=== PATIENT | male | born 1950 | race Caucasian/White ===

== ENCOUNTER 2016-04-04 03:45 | Inpatient (IN) | payer MEDICARE ==
[2016-04-04] MEDS ORDERED: ASPIRIN 81 MG TABLET, CHEWABLE PO ONE (04:14)
[2016-04-04 04:56] LABS: ABSOLUTE LYMPHOCYTES (AUTO) 1.3 10^3/uL (0.5-4.7); ABSOLUTE MONOCYTES (AUTO) 2.5 10^3/uL (0.1-1.4); ABSOLUTE NEUT (AUTO) 12.3 10^3/uL (1.7-8.2); BASOPHILS % (AUTO) 0.3 % (0-2); HEMOGLOBIN 11.4 g/dL (13.5-17.0); HGB HCT DIFFERENCE 1.2; LYMPHOCYTES % (AUTO) 8.2 % (13-45); MEAN CORPUSCULAR HEMOGLOBIN 32.2 pg (27.0-33.4); MEAN CORPUSCULAR HGB CONC 34.4 g/dL (32.0-36.0); MEAN CORPUSCULAR VOLUME 94 fl (80-97); MONOCYTES % (AUTO) 15.3 % (3-13); RED BLOOD COUNT 3.53 10^6/uL (4.35-5.55); RED CELL DISTRIBUTION WIDTH 13.2 % (11.5-14.0); SEGMENTED NEUTROPHILS % (AUTO) 76.2 % (42-78); WHITE BLOOD COUNT 16.1 10^3/uL (4.0-10.5)
[2016-04-04] MEDS ORDERED: NORMAL SALINE 1000 ML 1,000 ML IV ONE (05:08)
[2016-04-04 05:15] LABS: ALANINE AMINOTRANSFERASE 30 U/L (21-72); ALBUMIN 3.6 g/dL (3.5-5.0); ALKALINE PHOSPHATASE 79 U/L (38-126); ANION GAP 17 (5-19); ASPARTATE AMINO TRANSFERASE 34 U/L (17-59); BILIRUBIN,DIRECT 0.5 mg/dL (0.0-0.3); BILIRUBIN,TOTAL 2.8 mg/dL (0.2-1.3); BLOOD UREA NITROGEN 45 mg/dL (7-20); CALCIUM 9.6 mg/dL (8.4-10.2); CARBON DIOXIDE 24 mmol/L (22-30); CHLORIDE 95 mmol/L (98-107); CREATINE KINASE 56 U/L (55-170); GLUCOSE 99 mg/dL (75-110); POTASSIUM 4.9 mmol/L (3.6-5.0); SODIUM 135.7 mmol/L (137-145); TOTAL PROTEIN 6.4 g/dL (6.3-8.2)
--- NOTE | 2016-04-04 05:17 | ER Document Report ---
ED Blood Pressure Problem <ANA ROSA DIAZ - Last Filed: 04/04/16 05:47> <RADHAJACQUE - Last Filed: 04/04/16 18:33> - General Mode of Arrival: Medic Information source: Patient, Relative <SUNNI ANAYA - Last Filed: 04/05/16 21:50> - General Chief Complaint: Low Blood Pressure Stated Complaint: BLOOD PRESSURE PROBLEMS Notes: Patient is a 66-year-old male with a history of COPD, heart attack in who presents to the ER today with left-sided chest pain that began approximately 4 days ago, worse with taking deep breaths. Patient states the chest pain worsened today. Patient states that he has felt generally weak over the past 4 days and has really just stayed in the bed, getting up occasionally to watch TV. He denies any weakness worse on one side or the other, numbness or tingling, headache, nausea, vomiting. He denies any dysuria, abdominal pain. He does admit to some diarrhea that is abnormal for him over the past 4 days as well as some fevers and chills that have been intermittent, but he has not taken his temperature. (JACLYNSUNNI) - Related Data Allergies/Adverse Reactions: Penicillins Allergy (Severe, Verified 04/04/16 04:47) Anaphylaxis Home Medications: Current Home Medications Albuterol Sulfate [Albuterol Sulfate 2.5mg/3 mL] 2.5 mg IH PRN PRN 04/04/16 [ History] Albuterol Sulfate [Proair Hfa Inhalation Aerosol 8.5 gm Mdi] 1 puff IH Q4HP PRN 04/04/16 [History] Carvedilol [Coreg] 12.5 mg PO DAILY 04/04/16 [History] Celecoxib [Celebrex 200 mg Capsule] 200 mg PO DAILY 04/04/16 [History] Citalopram Hydrobromide [Celexa 40 mg Tablet] 40 mg PO DAILY 04/04/16 [History] Esomeprazole Magnesium [Nexium] 40 mg PO DAILY 04/04/16 [History] Furosemide [Lasix 40 mg Tablet] 40 mg PO Q2DAYS PRN 04/04/16 [History] Gabapentin 600 mg PO BID 04/04/16 [History] Hydromorphone HCl [Dilaudid] 4 mg PO Q4HP PRN 04/04/16 [History] Losartan Potassium 100 mg PO DAILY 04/04/16 [History] Nitroglycerin [Nitrostat 0.4 mg (1/150 Gr) Tabs 25/Bottle] 1 tab SL Q5MP PRN 01/09 [History] Prednisone 10 mg PO DAILY 04/04/16 [History] Tamsulosin HCl [Flomax 0.4 mg Cap.sr] 0.4 mg PO DAILY 04/04/16 [History] Tiotropium [place] [Spiriva Handihaler 18 mcg/dose (30 Dose)] 1 cap IH DAILY 01/09 [History] Past Medical History - General Information source: Patient - Social History Smoking Status: Former Smoker Family History: Reviewed & Not Pertinent <SUNNI ANAYA - Last Filed: 04/05/16 21:50> Review of Systems - Review of Systems Constitutional: See HPI EENT: No symptoms reported Cardiovascular: See HPI Respiratory: See HPI Gastrointestinal: See HPI Genitourinary: No symptoms reported Male Genitourinary: No symptoms reported Musculoskeletal: No symptoms reported Skin: No symptoms reported Hematologic/Lymphatic: No symptoms reported Neurological/Psychological: No symptoms reported <SUNNI ANAYA - Last Filed: 04/05/16 21:50> Physical Exam <ANA ROSA DIAZ - Last Filed: 04/04/16 05:47> <JACQUE GARCIA - Last Filed: 04/04/16 18:33> <SUNNI ANAYA - Last Filed: 04/05/16 21:50> - Vital signs Vitals: Temp 98.0 F 04/04/16 03:50 (ANA ROSA DIAZ) (JACQUE GARCIA) - Notes Notes: PHYSICAL EXAMINATION: GENERAL: pale, chronically ill appearing, in no acute distress. HEAD: Atraumatic, normocephalic. EYES: Pupils equal round and reactive to light, extraocular movements intact, sclera anicteric, conjunctiva are normal. ENT: ear canals without erythema or foreign body, TMs pearly soto with good bony landmarks, nares patent, oropharynx clear without exudates. Moist mucous membranes. NECK: Normal range of motion, supple without lymphadenopathy LUNGS: CTAB and equal. No wheezes rales or rhonchi. HEART/CHEST: nontender to palpation, Regular rate and rhythm without murmurs ABDOMEN: Soft, RLQ and LLQ tenderness. No guarding, no rebound BACK: no vertebral tenderness, normal ROM GI/: no CVA tenderness EXTREMITIES: Normal range of motion, no pitting edema. No cyanosis. NEUROLOGICAL: alert and oriented to person place and time, answering questions appropriately, Cranial nerves grossly intact. Normal sensory/motor exams. PSYCH: Normal mood, normal affect. SKIN: Warm, Dry, normal turgor, no rashes or lesions noted (SUNNI ANAYA) Course - Laboratory Result Diagrams: 04/04/16 04:40 04/04/16 04:40 <ANA ROSA DIAZ - Last Filed: 04/04/16 05:47> - Laboratory Result Diagrams: 04/04/16 04:40 04/04/16 04:40 <JACQUE GARCIA - Last Filed: 04/04/16 18:33> - Laboratory Result Diagrams: 04/05/16 14:53 04/05/16 14:53 <SUNNI ANAYA - Last Filed: 04/05/16 21:50> - Re-evaluation Re-evalutation: 04/04/16 05:47 I did speak with Rita Santacruz, physician's acute care nursing assistant, but the patient. Unfortunately we do not have any old records for the patient being that he is from [place]. Per the history patient has been feeling unwell and somewhat confused at home. Patient has had some intermittent mild chest pain. He does have a cardiac history. He does not have stents. 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 Due to him being initially high. DanielaI did do a bedside ultrasound to make sure is no large pleural effusion. A total chills negative. Clinically the patient looks well. He's had to questions appropriate. He's been interacting appropriate. His blood pressure systolically in the low 100s. His chest x-ray shows no evidence fluid overload and therefore we'll give him more IV fluids. His creatinine is elevated suggesting that maybe he has become very dehydrated. We still waiting for the labs. We'll repeat his troponin to make sure that it is not increasing. Patient has a leukocytosis however he is chronically on steroids due to history of COPD. He's had no fevers. He is not septic or toxic appearing at this time. He is chronically on steroids for COPD. We will give him a stress dose of soluCortef and send a random cortisol level.. (ANA ROSA DIAZ) 04/04/16 07:21 Pt stable, vital signs are all within normal limits. Pt actually looks very well right now. OLY Uribe has taken over the case at this time. ( SUNNI ANAYA) - Vital Signs Vital signs: Temp Pulse Resp BP Pulse Ox 97.5 F 70 20 88/60 L 94 04/05/16 19:50 04/05/16 19:50 04/05/16 19:50 04/05/16 19:50 04/05/16 19:50 (ANA ROSA DIAZ) (JACQUE GARCIA) - Laboratory Laboratory results interpreted by me: 04/04/16 04/04/16 04/04/16 04:40 04:40 06:00 WBC 16.1 H RBC 3.53 L Hgb 11.4 L Hct 33.0 L Lymphocytes % 8.2 L Monocytes % 15.3 H Absolute Neutrophils 12.3 H Absolute Monocytes 2.5 H Sodium 135.7 L Chloride 95 L BUN 45 H Creatinine 3.70 H Est GFR ( Amer) 20 L Est GFR (Non-Af Amer) 17 L Total Bilirubin 2.8 H Direct Bilirubin 0.5 H Urine Protein 100 H Urine Glucose (UA) 50 H Urine Ketones TRACE H Urine Urobilinogen 4.0 H (ANA ROSA DIAZ) (JACQUE GARCIA) (SUNNI ANAYA) Discharge <ANA ROSA DIAZ - Last Filed: 04/04/16 05:47> - Discharge Admitting Provider: Hospitalist Unit Admitted: Telemetry <JACQUE GARCIA - Last Filed: 04/04/16 18:33> <SUNNI ANAYA - Last Filed: 04/05/16 21:50> - Discharge Clinical Impression: Weakness, Acute kidney injury Condition: Stable Disposition: ADMITTED INPATIENT
[2016-04-04 05:27] LABS: CREATINE KINASE MB 1.04 ng/mL (<4.55)
[2016-04-04 05:29] LABS: TROPONIN I 0.067 ng/mL
[2016-04-04] MEDS ORDERED: HYDROCORTISONE SOD SUCCINATE INJ/PF 100 MG/2 ML SDV IV ONE (05:52)
[2016-04-04 06:40] LABS: APPEARANCE,URINE CLOUDY; BILIRUBIN,URINE NEGATIVE (NEGATIVE); GLUCOSE, URINE 50 mg/dL (NEGATIVE); KETONES,URINE TRACE mg/dL (NEGATIVE); LEUKOCYTE ESTERASE,URINE NEGATIVE (NEGATIVE); NITRITE,URINE NEGATIVE (NEGATIVE); PROTEIN,URINE 100 mg/dL (NEGATIVE); URINE SPECIFIC GRAVITY 1.014
[2016-04-04] MEDS ORDERED: CEFTRIAXONE 1 GM/D5W RTU 50 ML IV ONE (06:44)
--- NOTE | 2016-04-04 07:20 | EKG REPORT ---
SEVERITY:- ABNORMAL ECG - SINUS RHYTHM INCOMPLETE RIGHT BUNDLE BRANCH BLOCK : Confirmed by: Arelis Contreras MD 04-Apr-2016 07:19:51
[2016-04-04 07:36] LABS: VENOUS BLOOD HCO3 24.5 mmol/L (20-32); VENOUS BLOOD PCO2 44.1 mmHg (35-63); VENOUS BLOOD PH 7.36 (7.30-7.42)
--- NOTE | 2016-04-04 08:16 | Physician Advisory Note ---
Physician Advisor ProgressNote .: Pursuant to the plan for [facility], I have reviewed the medical record for this patient. Physician Advisor Statement: Possible documentation opportunities if attending agrees: 1. "Chest pain, likely/possibly due to " 2. "suspected acute kidney injury, likely due to " [ATN, Acute cortical necrosis, medullary necrosis, ...] 3. "Chronic Kidney Dz stage ___" 4. "mild hyponatremia, likely due to intravascular volume depletion" As always, if concerned about any unstable VS or abnormal labs, please comment on them & note what doing about them, & please document each day the potential clinical problems you are concerned could occur if pt not kept in hospital for tx at this time. Status: 66yo w/COPD on chronic steroids, CAD w/past KS & CABG, comes in w/CP after 4 days of feeling unwell/weak, with diarrhea & subjective F/C. Reportedly somewhat confused at home. Presents with hypotension, hyponatremia, Cr 3.70, ketonuria/proteinuria/glucosuria, leukocytosis (unknown how much leukocytosis is usual for him). Pt with CP/TERRELL/hyponatremia is typically most appropriate to bring in as Outpt Observation, initially, with close monitoring for development of reasons to need transition to Inpatient status, documenting explicitly, if so, why tx in inpatient hospital setting medically reasonable & necessary to protect pt's health, safety, & medical condition. (An aside: "Admit" now means "Inpt" - we "bring in" for Outpt Obs, then decide to "Admit to Inpt" or to d/c.) Thanks for your help with documentation accuracy/specificity improvement! Destiny Marshall MD [facility] Physician Advisor, Fellow of Hospital Medicine Addendum 04/05: H&P nicely documents co-morbidities & baseline Cr which makes it much clearer how severe the TERRELL was on arrival, the NPO status x days, with continued use of nephrotoxic meds, & the concern for osteomyelitis/tx w/IV Aztreonam, & supports Inpt status. Approp Inpt. CK
[2016-04-04] MEDS: NORMAL SALINE 1000 ML 1,000 ML IV PRN (09:44)
[2016-04-04] MEDS ORDERED: HYDROMORPHONE HCL INJ/PF 2 MG/ML AMPULE IV ONE (09:45)
[2016-04-04] MEDS ORDERED: NITROGLYCERIN 0.4 MG/TAB 25 TAB/BOTTLE SL PRN ×2 (14:56→15:27)
[2016-04-04] MEDS: HEPARIN SOD (PORCINE) 5,000 UNIT/ML 1 ML SYRINGE SUBCUT SCH ×2 (15:00→21:31)
[2016-04-04] MEDS ORDERED: TAMSULOSIN HCL 0.4 MG CAP.SR.24H PO SCH (15:00)
[2016-04-04] MEDS ORDERED: PREDNISONE 10 MG TABLET PO SCH (15:00)
[2016-04-04] MEDS ORDERED: (PENDING PHARMACY ID) (Citalopram Hydrobromide [Celexa 40 Mg Tablet] 40 MG) PO SCH (15:00)
[2016-04-04] MEDS ORDERED: TIOTROPIUM BROMIDE DPI 5 CAP/KIT (18 MCG/CAP) IH SCH (15:00)
[2016-04-04] MEDS ORDERED: CARVEDILOL 12.5 MG TABLET PO ONE (16:00)
[2016-04-04] MEDS ORDERED: ALBUTEROL SULFATE HFA (90 MCG/PUFF) 200 PUFF/8.5 GM MDI IH PRN (16:00)
--- NOTE | 2016-04-04 16:32 | PDOC H&P ---
History of Present Illness Admission Date/PCP: 04/04/16 09:58 In, [place], [place] Patient complains of: Weakness History of Present Illness: ISAI CORREIA is a 66 year old male with a past medical history of COPD, heart attack in who presents to the ER with significant fatigue. According to the patient he has not had anything to eat or drink since Sunday. The patient states that he's been unable to ambulate due to pain in his left lower extremity. And does have a chronic "condition" of the left lower extremity for which he is followed by orthopedics and pain management. The patient denies any history of Charcot foot although it does appear to look like this. He denies any weakness worse on one side or the other, numbness or tingling, headache, nausea, vomiting. He denies any dysuria, abdominal pain. He does admit to some diarrhea that is abnormal for him over the past 4 days as well as some fevers and chills that have been intermittent, but he has not taken his temperature. In spite of the patient's limited oral intake his continue to take his ARB, Lasix, as well as Celebrex. Upon presentation in the patient's creatinine was found to be 3.70 previous records show his baseline creatinine about 1.3. The patient has received 2 liters of saline while in the emergency department and states that he does feel improved. Patient denies any chest pain. The patient was referred to the hospitalist for admission and management. Past Medical History Cardiac Medical History: Reports: Coronary Artery Disease, Myocardial Infarction , Hypertension Pulmonary Medical History: Reports: Chronic Obstructive Pulmonary Disease (COPD) Endocrine Medical History: Reports: Obesity Past Surgical History Past Surgical History: Reports: Coronary Artery Bypass Graft, Orthopedic Surgery - Neck, back, hip, and carpal tunnel 2 Social History Information Source: Patient Occupation: Disability Lives with: Alone - Lives in [facility] recently was brought here by his sister Smoking Status: Former Smoker Number of Years Smokin Frequency of Alcohol Use: Social Hx Recreational Drug Use: No Hx Prescription Drug Abuse: No - Advance Directive Resuscitation Status: Full Code Surrogate healthcare decision maker:: Sister Family History Family History: Reviewed & Not Pertinent, CAD, CVA, Malignancy Parental Family History Reviewed: Yes - mother: due to brain trauma, father: due to lung cancer Children Family History Reviewed: Yes - 1 daughter who is healthy Sibling(s) Family History Reviewed.: Yes - The patient has 4 sisters all of which are healthy Medication/Allergy Home Medications: Albuterol Sulfate [Albuterol Sulfate 2.5mg/3 mL] 2.5 mg IH PRN PRN 04/04/16 Albuterol Sulfate [Proair Hfa Inhalation Aerosol 8.5 gm Mdi] 1 puff IH Q4HP PRN 04/04/16 Carvedilol [Coreg] 12.5 mg PO DAILY 04/04/16 Celecoxib [Celebrex 200 mg Capsule] 200 mg PO DAILY 04/04/16 Citalopram Hydrobromide [Celexa 40 mg Tablet] 40 mg PO DAILY 04/04/16 Esomeprazole Magnesium [Nexium] 40 mg PO DAILY 04/04/16 Furosemide [Lasix 40 mg Tablet] 40 mg PO Q2DAYS PRN 04/04/16 Gabapentin 600 mg PO BID 04/04/16 Hydromorphone HCl [Dilaudid] 4 mg PO Q4HP PRN 04/04/16 Losartan Potassium 100 mg PO DAILY 04/04/16 Nitroglycerin [Nitrostat 0.4 mg (1/150 Gr) Tabs 25/Bottle] 1 tab SL Q5MP PRN 01/09 Prednisone 10 mg PO DAILY 04/04/16 Tamsulosin HCl [Flomax 0.4 mg Cap.sr] 0.4 mg PO DAILY 04/04/16 Tiotropium [place] [Spiriva Handihaler 18 mcg/dose (30 Dose)] 1 cap IH DAILY 01/09 Allergies/Adverse Reactions: Penicillins Allergy (Severe, Verified 04/04/16 04:47) Anaphylaxis Review of Systems Constitutional: PRESENT: anorexia, chills, fatigue, weakness. ABSENT: fever(s) , headache(s), weight gain, weight loss Eyes: ABSENT: visual disturbances Ears: ABSENT: hearing changes Cardiovascular: PRESENT: chest pain. ABSENT: dyspnea on exertion, edema, orthropnea, palpitations Respiratory: ABSENT: cough, hemoptysis Gastrointestinal: ABSENT: abdominal pain, constipation, diarrhea, hematemesis, hematochezia, nausea, vomiting Genitourinary: ABSENT: dysuria, hematuria Musculoskeletal: ABSENT: joint swelling Integumentary: ABSENT: rash, wounds Neurological: ABSENT: abnormal gait, abnormal speech, confusion, dizziness, focal weakness, syncope Psychiatric: ABSENT: anxiety, depression, homidical ideation, suicidal ideation Endocrine: ABSENT: cold intolerance, heat intolerance, polydipsia, polyuria Hematologic/Lymphatic: ABSENT: easy bleeding, easy bruising Physical Exam Vital Signs: Temp Pulse Resp BP Pulse Ox 97.6 F 81 20 119/65 98 04/04/16 15:17 04/04/16 15:17 04/04/16 15:17 04/04/16 15:17 04/04/16 15:17 Intake & Output 04/02/16 04/03/16 04/04/16 23:59 23:59 23:59 Intake Total 500 Balance 500 Weight 129.3 kg General appearance: PRESENT: no acute distress, cooperative, disheveled, obese, well-developed Head exam: PRESENT: atraumatic, normocephalic Eye exam: PRESENT: conjunctiva pink, EOMI, PERRLA. ABSENT: scleral icterus Ear exam: PRESENT: normal external ear exam Mouth exam: PRESENT: moist, tongue midline Neck exam: ABSENT: carotid bruit, JVD, lymphadenopathy, thyromegaly Respiratory exam: PRESENT: clear to auscultation tiera. ABSENT: rales, rhonchi, wheezes Cardiovascular exam: PRESENT: RRR. ABSENT: diastolic murmur, rubs, systolic murmur Pulses: PRESENT: normal dorsalis pedis pul Vascular exam: PRESENT: normal capillary refill GI/Abdominal exam: PRESENT: normal bowel sounds, soft. ABSENT: distended, guarding, mass, organolmegaly, rebound, tenderness Rectal exam: PRESENT: deferred Extremities exam: PRESENT: other - Left foot is swollen with healing. ABSENT: calf tenderness, clubbing, pedal edema Neurological exam: PRESENT: alert, awake, oriented to person, oriented to place , oriented to time, oriented to situation, CN II-XII grossly intact. ABSENT: motor sensory deficit Psychiatric exam: PRESENT: appropriate affect, normal mood. ABSENT: homicidal ideation, suicidal ideation Skin exam: PRESENT: dry, intact, warm. ABSENT: cyanosis, rash Results Laboratory Results: Labs- All tests 24 hr 04/04/16 04/04/16 04/04/16 04:40 04:40 04:40 WBC 16.1 H RBC 3.53 L Hgb 11.4 L Hct 33.0 L MCV 94 MCH 32.2 MCHC 34.4 RDW 13.2 Plt Count 294 Seg Neutrophils % 76.2 Lymphocytes % 8.2 L Monocytes % 15.3 H Eosinophils % 0.0 Basophils % 0.3 Absolute Neutrophils 12.3 H Absolute Lymphocytes 1.3 Absolute Monocytes 2.5 H Absolute Eosinophils 0.0 Absolute Basophils 0.0 VBG pH VBG pCO2 VBG HCO3 VBG Base Excess Sodium 135.7 L Potassium 4.9 Chloride 95 L Carbon Dioxide 24 Anion Gap 17 BUN 45 H Creatinine 3.70 H Est GFR ( Amer) 20 L Est GFR (Non-Af Amer) 17 L Glucose 99 Lactic Acid Calcium 9.6 Total Bilirubin 2.8 H Direct Bilirubin 0.5 H AST 34 ALT 30 Alkaline Phosphatase 79 Creatine Kinase 56 CK-MB (CK-2) 1.04 Troponin I 0.067 Total Protein 6.4 Albumin 3.6 Random Cortisol Urine Color Urine Appearance Urine pH Ur Specific [place] Urine Protein Urine Glucose (UA) Urine Ketones Urine Blood Urine Nitrite Urine Bilirubin Urine Urobilinogen Ur Leukocyte Esterase Urine WBC (Auto) Urine RBC (Auto) U Hyaline Cast (Auto) Urine Bacteria (Auto) Urine WBC Clumps Squamous Epi Cells Auto Granular Casts (Auto) WBC Casts (Auto) Urine Mucus (Auto) Urine Ascorbic Acid 04/04/16 04/04/16 04/04/16 04:40 05:35 06:00 WBC RBC Hgb Hct MCV MCH MCHC RDW Plt Count Seg Neutrophils % Lymphocytes % Monocytes % Eosinophils % Basophils % Absolute Neutrophils Absolute Lymphocytes Absolute Monocytes Absolute Eosinophils Absolute Basophils VBG pH VBG pCO2 VBG HCO3 VBG Base Excess Sodium Potassium Chloride Carbon Dioxide Anion Gap BUN Creatinine Est GFR ( Amer) Est GFR (Non-Af Amer) Glucose Lactic Acid 1.2 Calcium Total Bilirubin Direct Bilirubin AST ALT Alkaline Phosphatase Creatine Kinase CK-MB (CK-2) Troponin I Total Protein Albumin Random Cortisol 20.10 Urine Color JORGE Urine Appearance CLOUDY Urine pH 5.0 Ur Specific [place] 1.014 Urine Protein 100 H Urine Glucose (UA) 50 H Urine Ketones TRACE H Urine Blood NEGATIVE Urine Nitrite NEGATIVE Urine Bilirubin NEGATIVE Urine Urobilinogen 4.0 H Ur Leukocyte Esterase NEGATIVE Urine WBC (Auto) 83 Urine RBC (Auto) 55 U Hyaline Cast (Auto) 136 Urine Bacteria (Auto) TRACE Urine WBC Clumps FEW Squamous Epi Cells Auto 25 Granular Casts (Auto) 362 WBC Casts (Auto) 66 Urine Mucus (Auto) FEW Urine Ascorbic Acid NEGATIVE 04/04/16 04/04/16 07:00 08:04 WBC RBC Hgb Hct MCV MCH MCHC RDW Plt Count Seg Neutrophils % Lymphocytes % Monocytes % Eosinophils % Basophils % Absolute Neutrophils Absolute Lymphocytes Absolute Monocytes Absolute Eosinophils Absolute Basophils VBG pH 7.36 VBG pCO2 44.1 VBG HCO3 24.5 VBG Base Excess -1.0 Sodium Potassium Chloride Carbon Dioxide Anion Gap BUN Creatinine Est GFR ( Amer) Est GFR (Non-Af Amer) Glucose Lactic Acid Calcium Total Bilirubin Direct Bilirubin AST ALT Alkaline Phosphatase Creatine Kinase CK-MB (CK-2) Troponin I 0.054 Total Protein Albumin Random Cortisol Urine Color Urine Appearance Urine pH Ur Specific [place] Urine Protein Urine Glucose (UA) Urine Ketones Urine Blood Urine Nitrite Urine Bilirubin Urine Urobilinogen Ur Leukocyte Esterase Urine WBC (Auto) Urine RBC (Auto) U Hyaline Cast (Auto) Urine Bacteria (Auto) Urine WBC Clumps Squamous Epi Cells Auto Granular Casts (Auto) WBC Casts (Auto) Urine Mucus (Auto) Urine Ascorbic Acid Impressions: Chest X-Ray 04/04/16 04:14 IMPRESSION: NO SIGNIFICANT RADIOGRAPHIC FINDING IN THE CHEST. PRIOR CABG. Head CT 04/04/16 05:35 IMPRESSION: NORMAL BRAIN CT WITHOUT CONTRAST. Assessment & Plan - Diagnosis (1) Acute kidney injury Is this a current diagnosis for this admission?: YesPlan: Will continue to gently hydrate and repeat chemistries in the a.m. Will hold any nephrotoxic medications including ARB, diuretic, and NSAIDs. (2) Chronic kidney disease, stage III (moderate) Is this a current diagnosis for this admission?: YesPlan: Appears baseline creatinine is 1.3-1.5 range. It may be a little higher than that actually as these labs were obtained in 2014. (3) Coronary artery disease Qualifiers: Coronary Disease-Associated Artery/Lesion type: [place] artery [place] vs. transplanted heart: [place] heart Associated angina: without angina Qualified Code(s): I25.10 - Atherosclerotic heart disease of [place] coronary artery without angina pectoris Is this a current diagnosis for this admission?: YesPlan: Will continue home medications. Denies any chest pain. (4) Opiate dependence, continuous Is this a current diagnosis for this admission?: YesPlan: Will resume his home medications once confirmed. (5) Peripheral vascular disease Is this a current diagnosis for this admission?: YesPlan: Even the persistence of the patient's symptoms will obtain imaging to rule out osteomyelitis. The patient is a very poor historian and attending to obtain records from outside facility. (6) Benign prostatic hyperplasia Qualifiers: Prostatic enlargement morphology: unspecified morphology Lower urinary tract symptom presence: symptoms absent Qualified Code(s): N40.0 - Benign prostatic hyperplasia without lower urinary tract symptoms Is this a current diagnosis for this admission?: YesPlan: Will continue home medications. (7) Chronic obstructive pulmonary disease Qualifiers: COPD type: unspecified COPD Qualified Code(s): J44.9 - Chronic obstructive pulmonary disease, unspecified Is this a current diagnosis for this admission?: YesPlan: Will continue home medications. (8) Obesity (BMI 30-39.9) Is this a current diagnosis for this admission?: Yes - Time Time Spent with patient: on this visit including assessment, plan, physical examination, and patient education is 60 minutes. Time Spent: 50 to 70 Minutes Medications reviewed and adjusted accordingly: Yes Anticipated discharge: Home Within: within 48 hours Disposition: The patient is a full code. Pending patient's symptomatology and diagnostic findings will reevaluate in the a.m.
[2016-04-04 17:29] LABS: URINE BARBITURATES SCREEN NEGATIVE; URINE METHADONE SCREEN NEGATIVE; URINE PHENCYCLIDINE SCREEN NEGATIVE
[2016-04-04] MEDS: GABAPENTIN 300 MG CAPSULE PO SCH (18:19)
[2016-04-04] MEDS: TAMSULOSIN HCL 0.4 MG CAP.SR.24H PO SCH (18:19)
[2016-04-04] MEDS: HYDROMORPHONE HCL 2 MG TABLET PO PRN (20:43)
[2016-04-04] MEDS: AZTREONAM 1 GM in DEXTROSE 5%-WATER 50 ML IV SCH (21:32)
[2016-04-05] MEDS: HYDROMORPHONE HCL 2 MG TABLET PO PRN ×2 (06:52→13:15)
[2016-04-05] MEDS: AZTREONAM 1 GM in DEXTROSE 5%-WATER 50 ML IV SCH ×2 (06:52→15:37)
[2016-04-05] MEDS: NORMAL SALINE 1000 ML 1,000 ML IV PRN (06:53)
[2016-04-05] MEDS: HEPARIN SOD (PORCINE) 5,000 UNIT/ML 1 ML SYRINGE SUBCUT SCH (06:54)
[2016-04-05] MEDS ORDERED: CITALOPRAM HYDROBROMIDE 20 MG TABLET PO SCH (10:00)
[2016-04-05] MEDS ORDERED: CELECOXIB 200 MG CAPSULE PO SCH (10:00)
[2016-04-05] MEDS: LANSOPRAZOLE 30 MG TAB.RAP.DR PO SCH (10:10)
[2016-04-05] MEDS: GABAPENTIN 300 MG CAPSULE PO SCH ×2 (10:10→18:18)
[2016-04-05] MEDS: CELECOXIB 200 MG CAPSULE PO SCH (10:12)
[2016-04-05] MEDS: PREDNISONE 10 MG TABLET PO SCH (10:13)
[2016-04-05] MEDS: TIOTROPIUM BROMIDE DPI 5 CAP/KIT (18 MCG/CAP) IH SCH (10:19)
[2016-04-05 15:06] LABS: HEMATOCRIT 30.3 % (37.9-51.0); HEMOGLOBIN 10.3 g/dL (13.5-17.0); HGB HCT DIFFERENCE 0.6; MEAN CORPUSCULAR HEMOGLOBIN 31.8 pg (27.0-33.4); MEAN CORPUSCULAR HGB CONC 33.9 g/dL (32.0-36.0); MEAN CORPUSCULAR VOLUME 94 fl (80-97); RED BLOOD COUNT 3.23 10^6/uL (4.35-5.55); WHITE BLOOD COUNT 14.9 10^3/uL (4.0-10.5)
[2016-04-05 15:28] LABS: ALANINE AMINOTRANSFERASE 71 U/L (21-72); ALBUMIN 3.1 g/dL (3.5-5.0); ALKALINE PHOSPHATASE 109 U/L (38-126); ANION GAP 13 (5-19); ASPARTATE AMINO TRANSFERASE 87 U/L (17-59); BILIRUBIN,DIRECT 0.7 mg/dL (0.0-0.3); BILIRUBIN,TOTAL 2.4 mg/dL (0.2-1.3); BLOOD UREA NITROGEN 60 mg/dL (7-20); CALCIUM 8.9 mg/dL (8.4-10.2); CARBON DIOXIDE 25 mmol/L (22-30); CHLORIDE 97 mmol/L (98-107); GLUCOSE 121 mg/dL (75-110); POTASSIUM 4.5 mmol/L (3.6-5.0); SODIUM 134.9 mmol/L (137-145); TOTAL PROTEIN 5.8 g/dL (6.3-8.2); URIC ACID 10.7 mg/dL (3.5-8.5)
[2016-04-05 15:54] LABS: C-REACTIVE PROTEIN 308.2 mg/L (<10.0)
[2016-04-05] MEDS ORDERED: MORPHINE SULFATE 10 MG/ML INJ IV PRN ×2 (16:18→20:38)
--- NOTE | 2016-04-05 16:19 | PDOC PROGRESS REPORT ---
Subjective Progress Note for:: 04/05/16 Subjective:: The patient was seen earlier today on rounds. The patient denies any nausea, vomiting, diarrhea, shortness of breath, dizziness, chest pain, heart palpitations, fevers, or chills. The patient states that he no longer has an appetite. The patient is still having pain in his left leg and is unable to ambulate. The patient has remained afebrile. Blood pressures have been in a good range. When prompted the patient voices no other concerns at this time. Review of systems: The rest of the review of systems is negative. Physical Exam Vital Signs: Temp Pulse Resp BP Pulse Ox 100.5 F H 91 22 H 92/58 L 91 L 04/05/16 07:58 04/05/16 07:58 04/05/16 07:58 04/05/16 07:58 04/05/16 07:58 Intake & Output 04/03/16 04/04/16 04/05/16 23:59 23:59 23:59 Intake Total 1050 1620 Output Total 350 Balance 1050 1270 Weight 129.3 kg 129.3 kg General appearance: PRESENT: no acute distress, cooperative, disheveled, obese, well-developed Head exam: PRESENT: atraumatic, normocephalic Eye exam: PRESENT: conjunctiva pink, EOMI, PERRLA. ABSENT: scleral icterus Ear exam: PRESENT: normal external ear exam Mouth exam: PRESENT: moist, tongue midline Neck exam: ABSENT: carotid bruit, JVD, lymphadenopathy, thyromegaly Respiratory exam: PRESENT: clear to auscultation tiera. ABSENT: rales, rhonchi, wheezes Cardiovascular exam: PRESENT: RRR. ABSENT: diastolic murmur, rubs, systolic murmur Pulses: PRESENT: normal dorsalis pedis pul Vascular exam: PRESENT: normal capillary refill GI/Abdominal exam: PRESENT: normal bowel sounds, soft. ABSENT: distended, guarding, mass, organolmegaly, rebound, tenderness Rectal exam: PRESENT: deferred Extremities exam: PRESENT: other - Left foot is swollen with healing. ABSENT: calf tenderness, clubbing, pedal edema Neurological exam: PRESENT: alert, awake, oriented to person, oriented to place , oriented to time, oriented to situation, CN II-XII grossly intact. ABSENT: motor sensory deficit Psychiatric exam: PRESENT: appropriate affect, normal mood. ABSENT: homicidal ideation, suicidal ideation Skin exam: PRESENT: dry, intact, warm. ABSENT: cyanosis, rash Results Laboratory Results: 04/05/16 14:53 04/05/16 14:53 04/05/16 04/05/16 04/05/16 14:53 14:53 14:53 WBC 14.9 H RBC 3.23 L Hgb 10.3 L Hct 30.3 L MCV 94 MCH 31.8 MCHC 33.9 RDW 13.0 Plt Count 334 Sodium 134.9 L Potassium 4.5 Chloride 97 L Carbon Dioxide 25 Anion Gap 13 BUN 60 H Creatinine 3.70 H Est GFR ( Amer) 20 L Est GFR (Non-Af Amer) 17 L Glucose 121 H Uric Acid 10.7 H Calcium 8.9 Magnesium 2.1 Total Bilirubin 2.4 H AST 87 H ALT 71 Alkaline Phosphatase 109 C-Reactive Protein 308.2 H Total Protein 5.8 L Albumin 3.1 L Impressions: Lower Extremity MRI 04/04/16 00:00 IMPRESSION: 1. Marked ankle deformity as described. 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 No evidence of overt osteomyelitis. Extensive tenosynovitis. Chest X-Ray 04/04/16 04:14 IMPRESSION: NO SIGNIFICANT RADIOGRAPHIC FINDING IN THE CHEST. PRIOR CABG. Head CT 04/04/16 05:35 IMPRESSION: NORMAL BRAIN CT WITHOUT CONTRAST. Ankle X-Ray 04/05/16 10:45 IMPRESSION: As above. Assessment & Plan - Diagnosis (1) Unspecified open wound, left foot, initial encounter Qualifiers: Encounter type: initial encounter Qualified Code(s): S91.302A - Unspecified open wound, left foot, initial encounter Is this a current diagnosis for this admission?: YesPlan: Given findings on MRI have consult to orthopedics. Will continue current antibiotic coverage. Have added on a sedimentation rate as well as a C- reactive protein and uric acid. (2) Abnormal LFTs Is this a current diagnosis for this admission?: YesPlan: It appears that these have increased will obtain ultrasound and repeat in the a.m. (3) SIRS (systemic inflammatory response syndrome) Is this a current diagnosis for this admission?: Yes (4) Acute kidney injury Is this a current diagnosis for this admission?: YesPlan: Will continue to gently hydrate and repeat chemistries in the a.m. Will hold any nephrotoxic medications including ARB, diuretic, and NSAIDs. At this time unable to get an exact baseline as the patient does have known underlying CKG. Currently awaiting a complete abdominal ultrasound. (5) Chronic kidney disease, stage III (moderate) Is this a current diagnosis for this admission?: YesPlan: Appears baseline creatinine is 1.3-1.5 range. It may be a little higher than that actually as these labs were obtained in 2015. (6) Coronary artery disease Qualifiers: Coronary Disease-Associated Artery/Lesion type: koi artery [place] vs. transplanted heart: koi heart Associated angina: without angina Qualified Code(s): I25.10 - Atherosclerotic heart disease of koi coronary artery without angina pectoris Is this a current diagnosis for this admission?: YesPlan: Will continue home medications. Denies any chest pain. (7) Opiate dependence, continuous Is this a current diagnosis for this admission?: YesPlan: Will continue current medications. (8) Peripheral vascular disease Is this a current diagnosis for this admission?: YesPlan: The patient is a very poor historian but reassured that she has had a vascular and arterial workup that did not show any obstructive flow. Awaiting records from outside facility. (9) Benign prostatic hyperplasia Qualifiers: Prostatic enlargement morphology: unspecified morphology Lower urinary tract symptom presence: symptoms absent Qualified Code(s): N40.0 - Benign prostatic hyperplasia without lower urinary tract symptoms Is this a current diagnosis for this admission?: YesPlan: Will continue home medications. (10) Chronic obstructive pulmonary disease Qualifiers: COPD type: unspecified COPD Qualified Code(s): J44.9 - Chronic obstructive pulmonary disease, unspecified Is this a current diagnosis for this admission?: YesPlan: Will continue home medications. (11) Obesity (BMI 30-39.9) Is this a current diagnosis for this admission?: Yes - Time Time Spent with patient: on this visit including assessment, plan, physical examination, family meeting, and patient education is 35 minutes. Time Spent with patient: 35 or more minutes Medications reviewed and adjusted accordingly: Yes Within: within 48 hours Disposition: The patient is a full code. Pending patient's symptomatology and diagnostic findings will reevaluate in the a.m.
[2016-04-05] MEDS: CLINDAMYCIN 900 MG/D5W RTU 50 ML IV SCH (18:16)
[2016-04-05] MEDS: TAMSULOSIN HCL 0.4 MG CAP.SR.24H PO SCH (18:19)
[2016-04-05] MEDS: CARVEDILOL 12.5 MG TABLET PO SCH (18:19)
[2016-04-05] MEDS: MAG HYDROX/AL HYDROX/SIMETH SUSP 30 ML UDCUP PO PRN (20:27)
[2016-04-05] MEDS ORDERED: NORMAL SALINE 1000 ML 500 ML IV ONE ×2 (20:37→22:24)
[2016-04-05] MEDS ORDERED: HYDROMORPHONE HCL 2 MG TABLET PO PRN (20:38)
[2016-04-05] MEDS: LINEZOLID 300 ML IV SCH (21:44)
--- NOTE | 2016-04-05 22:09 | PDOC CONSULTATION ---
History of Present Illness Admission Date/PCP: 04/04/16 09:58 Patient complains of: Left ankle pain History of Present Illness: ISAI CORREIA is a 66 year old male with significant fatigue. The patient states that he's been unable to ambulate due to pain in his left lower extremity. Patient denies history of diabetes. He states he is always had pain but has been able to ambulate with Maureen braces but noticed on the pain significantly worsened. Patient has been following up with orthopedics in [facility] and was to undergo ankle fusion in the near future. Patient denies any specific trauma to the ankle. Denies open wound. Denies numbness or tingling. Pain worse with motion attempted weightbearing. Pain 10/10 with motion. Past Medical History Cardiac Medical History: Reports: Coronary Artery Disease, Myocardial Infarction , Hypertension Pulmonary Medical History: Reports: Chronic Obstructive Pulmonary Disease (COPD) Endocrine Medical History: Reports: Obesity Past Surgical History Past Surgical History: Reports: Coronary Artery Bypass Graft, Orthopedic Surgery - Neck, back, hip, and carpal tunnel 2 Social History Lives with: Alone - Lives in [facility] recently was brought here by his sister Smoking Status: Former Smoker Number of Years Smokin Frequency of Alcohol Use: Social Hx Recreational Drug Use: No Hx Prescription Drug Abuse: No - Advance Directive Resuscitation Status: Full Code Family History Family History: Reviewed & Not Pertinent Parental Family History Reviewed: No Children Family History Reviewed: No Sibling(s) Family History Reviewed.: No Medication/Allergy Home Medications: Albuterol Sulfate [Albuterol Sulfate 2.5mg/3 mL] 2.5 mg IH PRN PRN 04/04/16 Albuterol Sulfate [Proair Hfa Inhalation Aerosol 8.5 gm Mdi] 1 puff IH Q4HP PRN 04/04/16 Carvedilol [Coreg] 12.5 mg PO DAILY 04/04/16 Celecoxib [Celebrex 200 mg Capsule] 200 mg PO DAILY 04/04/16 Citalopram Hydrobromide [Celexa 40 mg Tablet] 40 mg PO DAILY 04/04/16 Esomeprazole Magnesium [Nexium] 40 mg PO DAILY 04/04/16 Furosemide [Lasix 40 mg Tablet] 40 mg PO Q2DAYS PRN 04/04/16 Gabapentin 600 mg PO BID 04/04/16 Hydromorphone HCl [Dilaudid] 4 mg PO Q4HP PRN 04/04/16 Losartan Potassium 100 mg PO DAILY 04/04/16 Nitroglycerin [Nitrostat 0.4 mg (1/150 Gr) Tabs 25/Bottle] 1 tab SL Q5MP PRN 01/09 Prednisone 10 mg PO DAILY 04/04/16 Tamsulosin HCl [Flomax 0.4 mg Cap.sr] 0.4 mg PO DAILY 04/04/16 Tiotropium [place] [Spiriva Handihaler 18 mcg/dose (30 Dose)] 1 cap IH DAILY 01/09 Allergies/Adverse Reactions: Penicillins Allergy (Severe, Verified 04/04/16 04:47) Anaphylaxis Review of Systems Constitutional: PRESENT: fatigue, weakness. ABSENT: chills, fever(s), headache( s), weight gain, weight loss Eyes: ABSENT: visual disturbances Ears: ABSENT: hearing changes Cardiovascular: ABSENT: chest pain, dyspnea on exertion, edema, orthropnea, palpitations Respiratory: ABSENT: cough, hemoptysis Gastrointestinal: ABSENT: abdominal pain, constipation, diarrhea, hematemesis, hematochezia, nausea, vomiting Genitourinary: ABSENT: dysuria, hematuria Musculoskeletal: PRESENT: as per HPI Integumentary: ABSENT: rash, wounds Neurological: ABSENT: abnormal gait, abnormal speech, confusion, dizziness, focal weakness, syncope Psychiatric: ABSENT: anxiety, depression, homidical ideation, suicidal ideation Endocrine: ABSENT: cold intolerance, heat intolerance, menstrual abnormalities, polydipsia, polyuria Hematologic/Lymphatic: PRESENT: easy bleeding. ABSENT: easy bruising, lymphadenopathy Physical Exam Vital Signs: Temp Pulse Resp BP Pulse Ox 97.5 F 70 20 88/60 L 94 04/05/16 19:50 04/05/16 19:50 04/05/16 19:50 04/05/16 19:50 04/05/16 19:50 Intake & Output 04/04/16 04/05/16 04/06/16 06:59 06:59 06:59 Intake Total 2670 1971 Output Total 350 900 Balance 2320 1071 Weight 129.3 kg General appearance: PRESENT: no acute distress, well-developed, well-nourished Head exam: PRESENT: atraumatic, normocephalic Eye exam: PRESENT: conjunctiva pink, EOMI. ABSENT: scleral icterus Ear exam: PRESENT: normal external ear exam Mouth exam: PRESENT: moist, tongue midline Neck exam: PRESENT: full ROM. ABSENT: carotid bruit, JVD, lymphadenopathy, thyromegaly Respiratory exam: PRESENT: wheezes Cardiovascular exam: PRESENT: RRR. ABSENT: diastolic murmur, rubs, systolic murmur Pulses: PRESENT: normal dorsalis pedis pul, +2 pedal pulses bilateral Vascular exam: PRESENT: normal capillary refill GI/Abdominal exam: PRESENT: normal bowel sounds, soft. ABSENT: distended, guarding, mass, organolmegaly, rebound, tenderness Rectal exam: PRESENT: deferred Musculoskeletal exam: PRESENT: other - Left lower extremity: Notable swelling. Positive effusion. No evidence of erythema no tracking erythema. Pain with ankle range of motion. Notable crepitus with range of motion. Cap refill less than 2 seconds. No sensory deficits. No pain with knee range of motion. Neurological exam: PRESENT: alert, awake, oriented to person, oriented to place , oriented to time, oriented to situation, CN II-XII grossly intact. ABSENT: motor sensory deficit Psychiatric exam: PRESENT: appropriate affect, normal mood. ABSENT: homicidal ideation, suicidal ideation Skin exam: PRESENT: dry, intact, warm. ABSENT: cyanosis, rash Results Laboratory Results: 04/05/16 14:53 04/05/16 14:53 04/05/16 04/05/16 04/05/16 14:53 14:53 14:53 WBC 14.9 H RBC 3.23 L Hgb 10.3 L Hct 30.3 L MCV 94 MCH 31.8 MCHC 33.9 RDW 13.0 Plt Count 334 Sodium 134.9 L Potassium 4.5 Chloride 97 L Carbon Dioxide 25 Anion Gap 13 BUN 60 H Creatinine 3.70 H Est GFR ( Amer) 20 L Est GFR (Non-Af Amer) 17 L Glucose 121 H Uric Acid 10.7 H Calcium 8.9 Magnesium 2.1 Total Bilirubin 2.4 H AST 87 H ALT 71 Alkaline Phosphatase 109 C-Reactive Protein 308.2 H Total Protein 5.8 L Albumin 3.1 L Impressions: Lower Extremity MRI 04/04/16 00:00 IMPRESSION: 1. Marked ankle deformity as described. 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 No evidence of overt osteomyelitis. Extensive tenosynovitis. Chest X-Ray 04/04/16 04:14 IMPRESSION: NO SIGNIFICANT RADIOGRAPHIC FINDING IN THE CHEST. PRIOR CABG. Head CT 04/04/16 05:35 IMPRESSION: NORMAL BRAIN CT WITHOUT CONTRAST. Ankle X-Ray 04/05/16 10:45 IMPRESSION: As above. Status: Image reviewed by me - I have reviewed patient's radiographs and MRI which demonstrates intra-articular effusion with destructive changes of the ankle joint area no evidence of underlying osteomyelitis. Assessment & Plan - Diagnosis (1) Septic arthritis of left ankle Qualifiers: Septic arthritis organism: due to unspecified organism Qualified Code(s): M00.9 - Pyogenic arthritis, unspecified Is this a current diagnosis for this admission?: YesPlan: At this point patient has findings of septic arthritis and originally presented with signs and symptoms of Charcot joint. Today I proceeded with aspiration and aspirated purulent material however it was less than 1 mL. At this point I have recommended operative intervention which includes irrigation and debridement of the left ankle. In the meantime patient will continue his antibiotics. Prior to operative intervention patient may require hemophilia replacement factor to decrease risk of bleeding intraoperatively. We will keep the patient nothing by mouth after midnight with plans to proceed with operative intervention tomorrow however given his high risk and history of hemophilia will discuss the possibility of transfer if patient medically stable.
[2016-04-06] MEDS: CLINDAMYCIN 900 MG/D5W RTU 50 ML IV SCH ×3 (01:51→19:39)
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
[2016-04-06] MEDS: CELECOXIB 200 MG CAPSULE PO SCH (11:19)
[2016-04-06] MEDS: GABAPENTIN 300 MG CAPSULE PO SCH ×2 (11:19→19:41)
[2016-04-06] MEDS: CARVEDILOL 12.5 MG TABLET PO SCH (11:20)
[2016-04-06] MEDS: PREDNISONE 10 MG TABLET PO SCH (11:21)
[2016-04-06] MEDS: LANSOPRAZOLE 30 MG TAB.RAP.DR PO SCH (11:22)
[2016-04-06] MEDS: TIOTROPIUM BROMIDE DPI 5 CAP/KIT (18 MCG/CAP) IH SCH (11:28)
[2016-04-06 11:43] LABS: ABSOLUTE BASOPHILS # (AUTO) 0.1 10^3/uL (0.0-0.2); ABSOLUTE MONOCYTES (AUTO) 1.6 10^3/uL (0.1-1.4); ABSOLUTE NEUT (AUTO) 12.4 10^3/uL (1.7-8.2); BASOPHILS % (AUTO) 0.8 % (0-2); EOSINOPHILS % (AUTO) 0.2 % (0-6); HEMATOCRIT 28.9 % (37.9-51.0); HEMOGLOBIN 9.6 g/dL (13.5-17.0); HGB HCT DIFFERENCE -0.1; LYMPHOCYTES % (AUTO) 6.8 % (13-45); MEAN CORPUSCULAR HEMOGLOBIN 31.6 pg (27.0-33.4); MEAN CORPUSCULAR HGB CONC 33.3 g/dL (32.0-36.0); MEAN CORPUSCULAR VOLUME 95 fl (80-97); MONOCYTES % (AUTO) 10.7 % (3-13); RED BLOOD COUNT 3.04 10^6/uL (4.35-5.55); RED CELL DISTRIBUTION WIDTH 13.1 % (11.5-14.0); SEGMENTED NEUTROPHILS % (AUTO) 81.5 % (42-78); WHITE BLOOD COUNT 15.2 10^3/uL (4.0-10.5)
[2016-04-06 11:52] LABS: ALANINE AMINOTRANSFERASE 58 U/L (21-72); ALBUMIN 2.6 g/dL (3.5-5.0); ALKALINE PHOSPHATASE 104 U/L (38-126); ANION GAP 14 (5-19); ASPARTATE AMINO TRANSFERASE 49 U/L (17-59); BILIRUBIN,TOTAL 1.5 mg/dL (0.2-1.3); BLOOD UREA NITROGEN 63 mg/dL (7-20); CALCIUM 8.9 mg/dL (8.4-10.2); CARBON DIOXIDE 22 mmol/L (22-30); CHLORIDE 98 mmol/L (98-107); CREATININE RESULT 2.79 mg/dL (0.52-1.25); GLUCOSE 87 mg/dL (75-110); MAGNESIUM 1.8 mg/dL (1.6-2.3); POTASSIUM 4.1 mmol/L (3.6-5.0); SODIUM 134.1 mmol/L (137-145); TOTAL PROTEIN 5.5 g/dL (6.3-8.2)
[2016-04-06] MEDS: LINEZOLID 300 ML IV SCH ×2 (12:52→21:53)
--- NOTE | 2016-04-06 16:21 | PDOC TRANSFER SUMMARY ---
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 Current Visit: Yes (4) Abnormal LFTs Current Visit: Yes (5) SIRS (systemic inflammatory response syndrome) Current Visit: Yes (6) Acute kidney injury Current Visit: Yes (7) Chronic kidney disease, stage III (moderate) Current Visit: Yes (8) Coronary artery disease Current Visit: Yes (9) Opiate dependence, continuous Current Visit: Yes (10) Peripheral vascular disease Current Visit: Yes (11) Benign prostatic hyperplasia Current Visit: Yes (12) Chronic obstructive pulmonary disease Current Visit: Yes (13) Obesity (BMI 30-39.9) Current Visit: Yes (14) DANGELO (obstructive sleep apnea) Current Visit: Yes - Transfer Medications Home Medications: Albuterol Sulfate [Albuterol Sulfate 2.5mg/3 mL] 2.5 mg IH PRN PRN 04/04/16 Albuterol Sulfate [Proair Hfa Inhalation Aerosol 8.5 gm Mdi] 1 puff IH Q4HP PRN 04/04/16 Carvedilol [Coreg] 12.5 mg PO DAILY 04/04/16 Celecoxib [Celebrex 200 mg Capsule] 200 mg PO DAILY 04/04/16 Citalopram Hydrobromide [Celexa 40 mg Tablet] 40 mg PO DAILY 04/04/16 Esomeprazole Magnesium [Nexium] 40 mg PO DAILY 04/04/16 Furosemide [Lasix 40 mg Tablet] 40 mg PO Q2DAYS PRN 04/04/16 Gabapentin 600 mg PO BID 04/04/16 Hydromorphone HCl [Dilaudid] 4 mg PO Q4HP PRN 04/04/16 Losartan Potassium 100 mg PO DAILY 04/04/16 Nitroglycerin [Nitrostat 0.4 mg (1/150 Gr) Tabs 25/Bottle] 1 tab SL Q5MP PRN 01/09 Prednisone 10 mg PO DAILY 04/04/16 Tamsulosin HCl [Flomax 0.4 mg Cap.sr] 0.4 mg PO DAILY 04/04/16 Tiotropium [place] [Spiriva Handihaler 18 mcg/dose (30 Dose)] 1 cap IH DAILY 01/09 Ipratropium/Albuterol Sulfate [Duoneb 3 ml Ampul] 3 ml NEB QIDP PRN 04/08/16 Transfer Medications: Current Medications Al Hydrox/Mg Hydrox/Simethicone (Maalox Plus Susp 30 Udcup) 30 ml PO Q4HP PRN PRN Reason: HEARTBURN Stop: 05/05/16 18:21 Last Admin: 04/05/16 20:27 Dose: 30 ml Albuterol (Proair Hfa Inhalation Aerosol 8.5 Gm Mdi) 1 puff IH Q4HP PRN PRN Reason: FOR WHEEZING Stop: 05/04/16 15:59 Carvedilol (Coreg 12.5 Mg Tablet) 12.5 mg PO DAILY ALBINO Stop: 05/05/16 09:59 Last Admin: 04/06/16 11:20 Dose: 12.5 mg Celecoxib (Celebrex 200 Mg Capsule) 200 mg PO DAILY ALBINO Stop: 05/05/16 09:59 Last Admin: 04/06/16 11:19 Dose: 200 mg Citalopram Hydrobromide (Celexa 20 Mg Tablet) 40 mg PO DAILY ALBINO Stop: 05/05/16 09:59 Last Admin: 04/05/16 10:11 Dose: 40 mg Gabapentin (Neurontin 300 Mg Capsule) 600 mg PO BID ALBINO Stop: 05/04/16 17:59 Last Admin: 04/06/16 11:19 Dose: 600 mg Hydromorphone HCl (Dilaudid 2 Mg Tablet) 4 mg PO Q4HP PRN PRN Reason: PAIN Stop: 04/11/16 15:27 Last Admin: 04/06/16 11:28 Dose: 4 mg Linezolid (Zyvox Rtu 600 Mg/300 Ml Premixed) 300 mls @ 300 mls/hr IV Q12 ALBINO Stop: 04/12/16 21:59 Last Admin: 04/06/16 12:52 Dose: 300 ml Sodium Chloride (Nacl 0.9% 1000 Ml Iv Soln) 1,000 mls @ 125 mls/hr IV CONTINUOUS PRN PRN Reason: THIS MED IS NOT "PRN" Stop: 05/04/16 09:27 Clindamycin Phosphate/Dextrose (Cleocin Rtu 900 Mg/D5w 50 Ml Premix) 50 mls @ 50 mls/hr IV Q8A ALBINO Stop: 04/12/16 17:59 Last Admin: 04/06/16 11:21 Dose: 50 ml Lansoprazole (Prevacid 30 Mg Odt Tablet) 30 mg PO DAILY ALBINO Stop: 05/05/16 09:59 Last Admin: 04/06/16 11:22 Dose: 30 mg Morphine Sulfate (Morphine 10 Mg/Ml Inj) 2 mg IV Q4HP PRN Stop: 04/12/16 16:17 Nitroglycerin (Nitrostat 0.4 Mg (1/150 Gr) Tabs 25/Bottle) 1 tab SL Q5MP PRN Stop: 05/04/16 15:26 Prednisone (Deltasone 10 Mg Tablet) 10 mg PO DAILY ALBINO Stop: 05/05/16 09:59 Last Admin: 04/06/16 11:21 Dose: 10 mg Sodium Chloride (Saline Flush 2.5 Ml Monoject Prefil Syrin) 2.5 ml IV Q8 ALBINO Stop: 05/04/16 13:59 Last Admin: 04/06/16 13:24 Dose: Not Given Tamsulosin HCl (Flomax 0.4 Mg Cap.Sr) 0.4 mg PO QPM ALBINO Stop: 05/04/16 17:59 Last Admin: 04/05/16 18:19 Dose: 0.4 mg Tiotropium [place] (Spiriva Handihaler 5 Cap/Kit (18 Mcg/Cap)) 1 cap IH DAILY ALBINO Stop: 05/05/16 09:59 Last Admin: 04/06/16 11:28 Dose: 1 cap - Allergies Allergies/Adverse Reactions: Penicillins Allergy (Severe, Verified 04/04/16 04:47) Anaphylaxis - Diet/Activity Discharge Diet: Cardiac Discharge Activity: Activity As Tolerated Hospital Course Hospital Course: ISAI CORREIA is a 66 year old male with a past medical history of COPD, heart attack in who presents to the ER with significant fatigue. According to the patient he has not had anything to eat or drink since Sunday. The patient states that he's been unable to ambulate due to pain in his left lower extremity. And does have a chronic "condition" of the left lower extremity for which he is followed by orthopedics and pain management. The patient denies any history of Charcot foot although it does appear to look like this. He denies any weakness worse on one side or the other, numbness or tingling, headache, nausea, vomiting. He denies any dysuria, abdominal pain. He does admit to some diarrhea that is abnormal for him over the past 4 days as well as some fevers and chills that have been intermittent, but he has not taken his temperature. In spite of the patient's limited oral intake his continue to take his ARB, Lasix, as well as Celebrex. Upon presentation in the patient's creatinine was found to be 3.70 previous records show his baseline creatinine about 1.5. The patient has received 2 liters of saline while in the emergency department and states that he does feel improved. Patient denies any chest pain. The patient was referred to the hospitalist for admission and management. The patient was admitted to continuous telemetry unit. The patient was placed on antibiotic coverage including Zyvox and clindamycin. The patient's white count did improve. Patient's blood pressures did improve the patient did not require pressors. The patient's creatinine did improve with hydration although an exact baseline is uncertain at this time. The patient's LFTs also improved during his stay the patient's complete abdominal ultrasound was unremarkable except for fatty liver. No evidence of medical renal disease reported. The patient's foot was evaluated by orthopedics and given the extent of the purulent drainage and findings on MRI and x-ray (disc enclosed) was felt that the patient would require debridement and exploration of the area. At that time the patient mentioned that he had hemophilia. Patient was seen by hematology and appears the patient will need factor IX prior to surgery and tertiary referral was recommended. The patient's blood cultures are positive for staph epi for 2 sets. Repeat cultures are pending. Physical Exam Vital Signs: Temp Pulse Resp BP Pulse Ox 98.5 F 87 18 122/68 99 04/06/16 08:50 04/06/16 08:50 04/06/16 08:50 04/06/16 08:50 04/06/16 08:50 Intake & Output 04/04/16 04/05/16 04/06/16 23:59 23:59 23:59 Intake Total 1050 4041 1920 Output Total 1600 500 Balance 1050 2441 1420 Weight 129.3 kg 129.3 kg 129 kg General appearance: PRESENT: no acute distress, cooperative, disheveled, obese, well-developed Head exam: PRESENT: atraumatic, normocephalic Eye exam: PRESENT: conjunctiva pink, EOMI, PERRLA. ABSENT: scleral icterus Ear exam: PRESENT: normal external ear exam Mouth exam: PRESENT: moist, tongue midline Neck exam: ABSENT: carotid bruit, JVD, lymphadenopathy, thyromegaly Respiratory exam: PRESENT: clear to auscultation tiera. ABSENT: rales, rhonchi, wheezes Cardiovascular exam: PRESENT: RRR. ABSENT: diastolic murmur, rubs, systolic murmur Pulses: PRESENT: normal dorsalis pedis pul Vascular exam: PRESENT: normal capillary refill GI/Abdominal exam: PRESENT: normal bowel sounds, soft. ABSENT: distended, guarding, mass, organolmegaly, rebound, tenderness Rectal exam: PRESENT: deferred Extremities exam: PRESENT: other - Left foot is swollen with healing. ABSENT: calf tenderness, clubbing, pedal edema Neurological exam: PRESENT: alert, awake, oriented to person, oriented to place , oriented to time, oriented to situation, CN II-XII grossly intact. ABSENT: motor sensory deficit Psychiatric exam: PRESENT: appropriate affect, normal mood. ABSENT: homicidal ideation, suicidal ideation Skin exam: PRESENT: dry, intact, warm. ABSENT: cyanosis, rash Results Laboratory Results: 04/06/16 11:20 04/06/16 11:20 04/05/16 04/06/16 04/06/16 14:53 11:20 11:20 WBC 15.2 H RBC 3.04 L Hgb 9.6 L Hct 28.9 L MCV 95 MCH 31.6 MCHC 33.3 RDW 13.1 Plt Count 334 Seg Neutrophils % 81.5 H Lymphocytes % 6.8 L Monocytes % 10.7 Eosinophils % 0.2 Basophils % 0.8 Absolute Neutrophils 12.4 H Absolute Lymphocytes 1.0 Absolute Monocytes 1.6 H Absolute Eosinophils 0.0 Absolute Basophils 0.1 Sodium 134.9 L 134.1 L Potassium 4.5 4.1 Chloride 97 L 98 Carbon Dioxide 25 22 Anion Gap 13 14 BUN 60 H 63 H Creatinine 3.70 H 2.79 H Est GFR ( Amer) 20 L 28 L Est GFR (Non-Af Amer) 17 L 23 L Glucose 121 H 87 Uric Acid 10.7 H Calcium 8.9 8.9 Magnesium 1.8 Total Bilirubin 2.4 H 1.5 H AST 87 H 49 ALT 71 58 Alkaline Phosphatase 109 104 C-Reactive Protein 308.2 H Total Protein 5.8 L 5.5 L Albumin 3.1 L 2.6 L 04/04/16 14:23 Nasophary (Mrsa Only) MRSA Surveillance Culture - Final NO MRSA RECOVERED Impressions: Lower Extremity MRI 04/04/16 00:00 IMPRESSION: 1. Marked ankle deformity as described. 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 No evidence of overt osteomyelitis. Extensive tenosynovitis. Chest X-Ray 04/04/16 04:14 IMPRESSION: NO SIGNIFICANT RADIOGRAPHIC FINDING IN THE CHEST. PRIOR CABG. Head CT 04/04/16 05:35 IMPRESSION: NORMAL BRAIN CT WITHOUT CONTRAST. Abdomen Ultrasound 04/05/16 00:00 IMPRESSION: Fatty liver. No gallstones. Ankle X-Ray 04/05/16 10:45 IMPRESSION: As above. Plan Discharge Plan: Patient patient has been accepted to the internal medicine service and [facility] Dr. Norma Jacobo. I would like to thank [facility] for graciously participating in the care of this patient. Time Spent: Greater than 30 Minutes - Time spent on this transfer is 60 minutes
[2016-04-06] MEDS ORDERED: NALOXONE HCL INJ/PF 0.4 MG/1 ML SDV ONE (18:22)
[2016-04-06] MEDS ORDERED: HYDROCORTISONE SOD SUCCINATE INJ/PF 100 MG/2 ML SDV IV ONE (19:00)
[2016-04-06] MEDS: TAMSULOSIN HCL 0.4 MG CAP.SR.24H PO SCH (19:41)
[2016-04-06] MEDS: HYDROCORTISONE SOD SUCCINATE INJ/PF 100 MG/2 ML SDV IV SCH (23:14)
[2016-04-07] MEDS: ACETAMINOPHEN 325 MG TABLET PO PRN (00:11)
[2016-04-07] MEDS: CLINDAMYCIN 900 MG/D5W RTU 50 ML IV SCH ×3 (02:29→19:11)
[2016-04-07] MEDS: HYDROCORTISONE SOD SUCCINATE INJ/PF 100 MG/2 ML SDV IV SCH (05:09)
[2016-04-07] MEDS: NORMAL SALINE 1000 ML 1,000 ML IV PRN ×2 (05:09→16:38)
--- NOTE | 2016-04-07 07:15 | PDOC PROGRESS REPORT ---
Subjective Progress Note for:: 04/07/16 Subjective:: Patient seen and evaluated this morning. Continues to have pain in his left ankle. Did have an issue of somnolence last evening secondary to pain medication and improved after Narcan. Denies chest pain today. Physical Exam Vital Signs: Temp Pulse Resp BP Pulse Ox 97.3 F 69 18 105/68 96 04/07/16 03:12 04/07/16 03:12 04/07/16 03:12 04/07/16 03:12 04/07/16 03:27 Intake & Output 04/06/16 04/07/16 04/08/16 06:59 06:59 06:59 Intake Total 4341 4510 Output Total 1750 700 Balance 2591 3810 Weight 129 kg 129 kg Musculoskeletal exam: PRESENT: other - Left lower extremity: No increased swelling appreciated. Pain with range of motion. Cap refill less than 2 seconds. No tracking erythema or erythema around the ankle. No pain along the calf proximally. Results Laboratory Results: 04/06/16 11:20 04/06/16 11:20 04/06/16 04/06/16 11:20 11:20 WBC 15.2 H RBC 3.04 L Hgb 9.6 L Hct 28.9 L MCV 95 MCH 31.6 MCHC 33.3 RDW 13.1 Plt Count 334 Seg Neutrophils % 81.5 H Lymphocytes % 6.8 L Monocytes % 10.7 Eosinophils % 0.2 Basophils % 0.8 Absolute Neutrophils 12.4 H Absolute Lymphocytes 1.0 Absolute Monocytes 1.6 H Absolute Eosinophils 0.0 Absolute Basophils 0.1 Sodium 134.1 L Potassium 4.1 Chloride 98 Carbon Dioxide 22 Anion Gap 14 BUN 63 H Creatinine 2.79 H Est GFR ( Amer) 28 L Est GFR (Non-Af Amer) 23 L Glucose 87 Calcium 8.9 Magnesium 1.8 Total Bilirubin 1.5 H AST 49 ALT 58 Alkaline Phosphatase 104 Total Protein 5.5 L Albumin 2.6 L 04/04/16 14:23 Nasophary (Mrsa Only) MRSA Surveillance Culture - Final NO MRSA RECOVERED Impressions: Lower Extremity MRI 04/04/16 00:00 IMPRESSION: 1. Marked ankle deformity as described. 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 No evidence of overt osteomyelitis. Extensive tenosynovitis. Chest X-Ray 04/04/16 04:14 IMPRESSION: NO SIGNIFICANT RADIOGRAPHIC FINDING IN THE CHEST. PRIOR CABG. Head CT 04/04/16 05:35 IMPRESSION: NORMAL BRAIN CT WITHOUT CONTRAST. Abdomen Ultrasound 04/05/16 00:00 IMPRESSION: Fatty liver. No gallstones. Ankle X-Ray 04/05/16 10:45 IMPRESSION: As above. Assessment & Plan - Diagnosis (1) Septic arthritis of left ankle Qualifiers: Septic arthritis organism: streptococcal Qualified Code(s): M00.272 - Other streptococcal arthritis, left ankle and foot Is this a current diagnosis for this admission?: YesPlan: At this point we are unable to proceed with operative intervention in this facility patient require surgery care facility for management of his hemophilia. I have recommended operative intervention of his left ankle given the purulent aspirate. At this point cultures from the aspirate are negative. Does have positive bacteremia organism continues to be pending. At this point he is medically stable and thus I do not feel emergent operative intervention is required.
[2016-04-07 07:53] LABS: HEMOGLOBIN 9.1 g/dL (13.5-17.0); HGB HCT DIFFERENCE -1.7; MEAN CORPUSCULAR HEMOGLOBIN 30.4 pg (27.0-33.4); MEAN CORPUSCULAR HGB CONC 31.3 g/dL (32.0-36.0); MEAN CORPUSCULAR VOLUME 97 fl (80-97); RED BLOOD COUNT 2.98 10^6/uL (4.35-5.55); RED CELL DISTRIBUTION WIDTH 13.1 % (11.5-14.0); WHITE BLOOD COUNT 18.1 10^3/uL (4.0-10.5)
[2016-04-07 08:16] LABS: ALANINE AMINOTRANSFERASE 72 U/L (21-72); ALBUMIN 2.7 g/dL (3.5-5.0); ALKALINE PHOSPHATASE 131 U/L (38-126); ANION GAP 12 (5-19); ASPARTATE AMINO TRANSFERASE 61 U/L (17-59); BILIRUBIN,TOTAL 1.2 mg/dL (0.2-1.3); BLOOD UREA NITROGEN 62 mg/dL (7-20); CALCIUM 8.9 mg/dL (8.4-10.2); CARBON DIOXIDE 21 mmol/L (22-30); CHLORIDE 101 mmol/L (98-107); CREATININE RESULT 2.69 mg/dL (0.52-1.25); GLUCOSE 149 mg/dL (75-110); POTASSIUM 4.7 mmol/L (3.6-5.0); SODIUM 133.5 mmol/L (137-145); TOTAL PROTEIN 5.6 g/dL (6.3-8.2)
[2016-04-07] MEDS: LINEZOLID 300 ML IV SCH ×2 (09:41→21:15)
[2016-04-07] MEDS: GABAPENTIN 300 MG CAPSULE PO SCH ×2 (09:43→19:12)
[2016-04-07] MEDS: CARVEDILOL 12.5 MG TABLET PO SCH (09:43)
[2016-04-07] MEDS: CELECOXIB 200 MG CAPSULE PO SCH (09:44)
[2016-04-07] MEDS: LANSOPRAZOLE 30 MG TAB.RAP.DR PO SCH (09:45)
[2016-04-07] MEDS: PREDNISONE 10 MG TABLET PO SCH (09:45)
[2016-04-07] MEDS: TIOTROPIUM BROMIDE DPI 5 CAP/KIT (18 MCG/CAP) IH SCH (09:45)
--- NOTE | 2016-04-07 10:17 | XCELERA REPORT ---
[address] [address] Transthoracic Echocardiogram Report Name: ISAI CORREIA Age: 66 yrs Gender: Male : 1950 Patient Status: Inpatient Patient Location: [id number]\S\436\[id number]\A Study Date: 04/05/2016 06:36 PM Height: 75 in Weight: 285 lb BSA: 2.6 m2 Procedure: A complete two-dimensional transthoracic echocardiogram was performed (2D, M-mode, spectral and color flow Doppler). The study was technically difficult with many images being suboptimal in quality. Reason For Study: Dyspnea, known CAD, edema Ordering Physician: XU COBURN Performed By: Paola Bates Interpretation Summary The Ejection Fraction estimate is 50-55% Left ventricular systolic function is borderline reduced. LV diastolic function could not be adequately assessed. There is mild concentric left ventricular hypertrophy. The left ventricle is grossly normal size. Not all wall segments were well visualized. The right ventricular systolic function is normal. Borderline right atrial enlargement. The left atrium is mildly dilated. There is a trace amount of mitral regurgitation There is no mitral valve stenosis. No aortic regurgitation is present. There is no aortic valve stenosis There is a trace to mild amount of tricuspid regurgitation There is mild pulmonary hypertension by echo Right ventricular systolic pressure is estimated to be elevated at 30- 40mmHg. There is no pericardial effusion. MMode/2D Measurements \T\ Calculations RVDd: 4.7 cm LVIDd: 4.7 cmFS: 24.1 % Ao root diam: 3.3 cm IVSd: 1.4 cm LVIDs: 3.5 cmEDV(Teich): 101.1 ml LVPWd: 1.1 cmESV(Teich): 52.6 ml Ao root area: 8.3 cm2 EF(Teich): 48.0 % LA dimension: 4.2 cm LVOT diam: 2.2 cm LVOT area: 3.9 cm2 Doppler Measurements \T\ Calculations MV E max paolo: MV P1/2t max paolo: Ao V2 max: LV V1 max P.5 cm/sec 102.2 cm/sec 132.7 cm/sec 3.5 mmHg MV A max paolo: MV P1/2t: 66.1 msec Ao max PG: LV V1 max: 72.3 cm/sec MVA(P1/2t): 3.3 cm2 7.1 mmHg 93.5 cm/sec MV E/A: 1.4 MV dec slope: JOSEPH(V,D): 2.8 cm2 452.9 cm/sec2 MV dec time: 0.21 sec PA V2 max: TR max paolo: 54.8 cm/sec 276.3 cm/sec PA max P.2 mmHgTR max P.5 mmHg Left Ventricle The left ventricle is grossly normal size. There is mild concentric left ventricular hypertrophy. Left ventricular systolic function is borderline reduced. The Ejection Fraction estimate is 50-55%. LV diastolic function could not be adequately assessed. Not all wall segments were well visualized. Right Ventricle The right ventricle is grossly normal size. There is normal right ventricular wall thickness. The right ventricular systolic function is normal. Atria Borderline right atrial enlargement. The left atrium is mildly dilated. Interarterial septum not well visualized and not well dopplered. Cannot comment on ASD/PFO presence. Mitral Valve There is mild mitral annular calcification. There is no mitral valve stenosis. There is a trace amount of mitral regurgitation. Aortic Valve The aortic valve is not well visualized secondary to technical limitations. There is no aortic valve stenosis. No aortic regurgitation is present. Tricuspid Valve The tricuspid valve is not well visualized secondary to technical limitations. There is no tricuspid stenosis. There is a trace to mild amount of tricuspid regurgitation. There is mild pulmonary hypertension by echo. Right ventricular systolic pressure is estimated to be elevated at 30-40mmHg. Pulmonic Valve The pulmonic valve is not well visualized. Great Vessels The aortic root is not well visualized but is probably normal size. The inferior vena cava appeared normal and decreased > 50% with respiration (RAP 5-10 mmHg). Effusions There is no pericardial effusion. : XU COBURN > Patrice Jain
[2016-04-07 18:57] LABS: APPEARANCE,URINE CLEAR; BILIRUBIN,URINE NEGATIVE (NEGATIVE); GLUCOSE, URINE 150 mg/dL (NEGATIVE); KETONES,URINE NEGATIVE (NEGATIVE); LEUKOCYTE ESTERASE,URINE NEGATIVE (NEGATIVE); NITRITE,URINE NEGATIVE (NEGATIVE); PROTEIN,URINE NEGATIVE (NEGATIVE); URINE SPECIFIC GRAVITY 1.008; UROBILINOGEN,URINE NEGATIVE mg/dL (<2.0)
[2016-04-07] MEDS: TAMSULOSIN HCL 0.4 MG CAP.SR.24H PO SCH (19:11)
[2016-04-07] MEDS: HYDROMORPHONE HCL 2 MG TABLET PO PRN (19:16)
[2016-04-08] MEDS: HYDROMORPHONE HCL 2 MG TABLET PO PRN ×3 (01:13→21:27)
[2016-04-08] MEDS: IPRATROPIUM/ALBUTEROL 0.5-2.5 MG/3 ML AMPUL NEB PRN ×2 (01:14→08:59)
[2016-04-08] MEDS: CLINDAMYCIN 900 MG/D5W RTU 50 ML IV SCH ×3 (05:34→17:50)
--- NOTE | 2016-04-08 06:36 | Progress Note ---
Provider Note Provider Note: 04/08/2016: Contacted by floor nursing staff that sisters had a number of questions about patient's test results and eventual plans for transfer to tertiary center and wished to speak to nighttime hospitalist.. Went to the patient's bedside shortly before 2 AM, with 2 sisters present, with patient's approval. Patient awake alert pleasant and cooperative. No obvious distress other than somewhat anxious. Blood pressure 150/84. Pulse 75 and regular. Respirations 20 and unlabored. Temperature 97.4. 100% saturation on room air. Approximately 10:30 PM the evening of the , floor nurses had contacted [facility] and was told bed may very well not be available until the first of next week. Ultrasound report and culture results discussed at patient and sisters' request , along with a number of lab results. At sisters' request, I did contact [facility]. At 220 a.m. this morning, I discussed the patient with Dr. Hernandez, on-call hospitalist there. Unfortunately, their hospital is full also, but patient is on waiting list there. Information passed along to patient's floor nurse. Sisters have since gone home.
[2016-04-08] MEDS ORDERED: IPRATROPIUM/ALBUTEROL 0.5-2.5 MG/3 ML AMPUL NEB ONE (09:02)
[2016-04-08] MEDS: LINEZOLID 300 ML IV SCH ×2 (09:51→23:21)
[2016-04-08] MEDS: LANSOPRAZOLE 30 MG TAB.RAP.DR PO SCH (09:54)
[2016-04-08] MEDS: TIOTROPIUM BROMIDE DPI 5 CAP/KIT (18 MCG/CAP) IH SCH (09:54)
[2016-04-08] MEDS: PREDNISONE 10 MG TABLET PO SCH (09:54)
[2016-04-08] MEDS: CARVEDILOL 12.5 MG TABLET PO SCH (09:54)
[2016-04-08] MEDS: GABAPENTIN 300 MG CAPSULE PO SCH ×2 (09:54→17:51)
[2016-04-08 12:34] LABS: ARTERIAL BLOOD BASE EXCESS -1.8 mmol/L; ARTERIAL BLOOD O2 SATURATION 99.3 % (94-98)
[2016-04-08 12:55] LABS: HEMATOCRIT 30.1 % (37.9-51.0); HEMOGLOBIN 9.9 g/dL (13.5-17.0); HGB HCT DIFFERENCE -0.4; MEAN CORPUSCULAR HEMOGLOBIN 31.2 pg (27.0-33.4); MEAN CORPUSCULAR HGB CONC 32.7 g/dL (32.0-36.0); MEAN CORPUSCULAR VOLUME 95 fl (80-97); RED BLOOD COUNT 3.16 10^6/uL (4.35-5.55); RED CELL DISTRIBUTION WIDTH 13.1 % (11.5-14.0); WHITE BLOOD COUNT 19.1 10^3/uL (4.0-10.5)
[2016-04-08] MEDS ORDERED: NORMAL SALINE 1000 ML 1,000 ML IV PRN (13:01)
--- NOTE | 2016-04-08 13:10 | PDOC PROGRESS REPORT ---
Subjective Progress Note for:: 04/06/16 Subjective:: The patient was seen earlier today on rounds. Currently awaiting bed placement. All questions answered to family at bedside. Instructed the patient to not take his own medications. Physical Exam Vital Signs: Temp Pulse Resp BP Pulse Ox 97.3 F 81 24 H 136/73 H 97 04/07/16 16:12 04/07/16 16:12 04/07/16 16:12 04/07/16 16:12 04/07/16 16:12 Intake & Output 04/05/16 04/06/16 04/07/16 23:59 23:59 23:59 Intake Total 4041 4430 2600 Output Total 8144 767 1245 Balance 2441 3630 1250 Weight 129.3 kg 129 kg 129 kg General appearance: PRESENT: no acute distress, cooperative, disheveled, obese, well-developed Head exam: PRESENT: atraumatic, normocephalic Eye exam: PRESENT: conjunctiva pink, EOMI, PERRLA. ABSENT: scleral icterus Ear exam: PRESENT: normal external ear exam Mouth exam: PRESENT: moist, tongue midline Neck exam: ABSENT: carotid bruit, JVD, lymphadenopathy, thyromegaly Respiratory exam: PRESENT: clear to auscultation tiera. ABSENT: rales, rhonchi, wheezes Cardiovascular exam: PRESENT: RRR. ABSENT: diastolic murmur, rubs, systolic murmur Pulses: PRESENT: normal dorsalis pedis pul Vascular exam: PRESENT: normal capillary refill GI/Abdominal exam: PRESENT: normal bowel sounds, soft. ABSENT: distended, guarding, mass, organolmegaly, rebound, tenderness Rectal exam: PRESENT: deferred Extremities exam: PRESENT: other - Left foot is swollen with healing. ABSENT: calf tenderness, clubbing, pedal edema Neurological exam: PRESENT: alert, awake, oriented to person, oriented to place , oriented to time, oriented to situation, CN II-XII grossly intact. ABSENT: motor sensory deficit Psychiatric exam: PRESENT: appropriate affect, normal mood. ABSENT: homicidal ideation, suicidal ideation Skin exam: PRESENT: dry, intact, warm. ABSENT: cyanosis, rash Results Laboratory Results: 04/07/16 07:37 04/07/16 07:37 04/07/16 04/07/16 07:37 07:37 WBC 18.1 H RBC 2.98 L Hgb 9.1 L Hct 29.0 L MCV 97 MCH 30.4 MCHC 31.3 L RDW 13.1 Plt Count 376 Sodium 133.5 L Potassium 4.7 Chloride 101 Carbon Dioxide 21 L Anion Gap 12 BUN 62 H Creatinine 2.69 H Est GFR ( Amer) 29 L Est GFR (Non-Af Amer) 24 L Glucose 149 H Calcium 8.9 Magnesium 2.0 Total Bilirubin 1.2 AST 61 H ALT 72 Alkaline Phosphatase 131 H Total Protein 5.6 L Albumin 2.7 L 04/04/16 18:40 Blood Blood Culture - Final Staphylococcus Aureus 04/04/16 17:15 Blood Blood Culture - Final Staphylococcus Aureus Impressions: Lower Extremity MRI 04/04/16 00:00 IMPRESSION: 1. Marked ankle deformity as described. 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 No evidence of overt osteomyelitis. Extensive tenosynovitis. Chest X-Ray 04/04/16 04:14 IMPRESSION: NO SIGNIFICANT RADIOGRAPHIC FINDING IN THE CHEST. PRIOR CABG. Head CT 04/04/16 05:35 IMPRESSION: NORMAL BRAIN CT WITHOUT CONTRAST. Abdomen Ultrasound 04/05/16 00:00 IMPRESSION: Fatty liver. No gallstones. Ankle X-Ray 04/05/16 10:45 IMPRESSION: As above. 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 (5) SIRS (systemic inflammatory response syndrome) Is this a current diagnosis for this admission?: Yes (6) Acute kidney injury Is this a current diagnosis for this admission?: YesPlan: Will continue to gently hydrate and repeat chemistries in the a.m. Will hold any nephrotoxic medications including ARB, diuretic, and NSAIDs. At this time unable to get an exact baseline as the patient does have known underlying CKD. ABD ULS unremarkable. (7) Chronic kidney disease, stage III (moderate) Is this a current diagnosis for this admission?: YesPlan: Appears baseline creatinine is 1.3-1.5 range. It may be a little higher than that actually as these labs were obtained in 2014. (8) Coronary artery disease Qualifiers: Coronary Disease-Associated Artery/Lesion type: [place] artery [place] vs. transplanted heart: [place] heart Associated angina: without angina Qualified Code(s): I25.10 - Atherosclerotic heart disease of [place] coronary artery without angina pectoris Is this a current diagnosis for this admission?: YesPlan: Will continue home medications. Denies any chest pain. (9) Opiate dependence, continuous Is this a current diagnosis for this admission?: YesPlan: Will continue current medications. (10) Peripheral vascular disease Is this a current diagnosis for this admission?: Yes (11) Benign prostatic hyperplasia Qualifiers: Prostatic enlargement morphology: unspecified morphology Lower urinary tract symptom presence: symptoms absent Qualified Code(s): N40.0 - Benign prostatic hyperplasia without lower urinary tract symptoms Is this a current diagnosis for this admission?: YesPlan: Will continue home medications. (12) Chronic obstructive pulmonary disease Qualifiers: COPD type: unspecified COPD Qualified Code(s): J44.9 - Chronic obstructive pulmonary disease, unspecified Is this a current diagnosis for this admission?: YesPlan: Will continue home medications. (13) Obesity (BMI 30-39.9) Is this a current diagnosis for this admission?: Yes (14) DANGELO (obstructive sleep apnea) Is this a current diagnosis for this admission?: Yes - Time Time Spent with patient: 35 or more minutes Medications reviewed and adjusted accordingly: Yes Anticipated discharge: [facility]: when bed available
[2016-04-08 13:12] LABS: ALANINE AMINOTRANSFERASE 71 U/L (21-72); ALBUMIN 2.7 g/dL (3.5-5.0); ALKALINE PHOSPHATASE 125 U/L (38-126); ANION GAP 11 (5-19); ASPARTATE AMINO TRANSFERASE 56 U/L (17-59); BLOOD UREA NITROGEN 50 mg/dL (7-20); CALCIUM 9.7 mg/dL (8.4-10.2); CARBON DIOXIDE 24 mmol/L (22-30); CHLORIDE 106 mmol/L (98-107); CREATININE RESULT 1.48 mg/dL (0.52-1.25); GLUCOSE 93 mg/dL (75-110); POTASSIUM 4.5 mmol/L (3.6-5.0); TOTAL PROTEIN 5.7 g/dL (6.3-8.2)
[2016-04-08 13:30] LABS: BAND NEUTROPHILS % (MANUAL) 1 % (3-5); BASOPHILS % (MANUAL) 0 % (0-2); EOSINOPHILS % (MANUAL) 0 % (0-6); LYMPHOCYTES % (MANUAL) 6 % (13-45); TOTAL CELLS COUNTED 100
[2016-04-08 13:32] LABS: POLYCHROMASIA SLIGHT
[2016-04-08] MEDS ORDERED: FUROSEMIDE INJ/PF 40 MG/4 ML SDV IV ONE (14:00)
--- NOTE | 2016-04-08 14:15 | PDOC PROGRESS REPORT ---
Subjective Progress Note for:: 04/08/16 Subjective:: Patient seen and evaluated family at bedside. Continues to have pain in his left ankle which she states is more painful today. Denies fever chills or sweats. Continues to use CPAP. Physical Exam Vital Signs: Temp Pulse Resp BP Pulse Ox 98.9 F 108 H 24 H 163/94 H 100 04/08/16 07:37 04/08/16 09:00 04/08/16 09:00 04/08/16 07:37 04/08/16 07:37 Intake & Output 04/07/16 04/08/16 04/09/16 06:59 06:59 06:59 Intake Total 4510 4075 Output Total 700 1975 Balance 3810 2100 Weight 129 kg 135.6 kg Musculoskeletal exam: PRESENT: other - Left ankle: Tenderness to palpation medially and laterally. Notable soft tissue swelling laterally. No open wound. Small ulcer along the plantar lateral aspect of the foot no active drainage. Pain with ankle range of motion. No evidence of tracking erythema. Results Laboratory Results: 04/08/16 12:44 04/08/16 12:44 04/07/16 04/08/16 04/08/16 18:07 12:15 12:44 WBC 19.1 H RBC 3.16 L Hgb 9.9 L Hct 30.1 L MCV 95 MCH 31.2 MCHC 32.7 RDW 13.1 Plt Count 602 H Seg Neutrophils % Not Reportable Lymphocytes % Not Reportable Monocytes % Not Reportable Eosinophils % Not Reportable Basophils % Not Reportable Absolute Neutrophils Not Reportable Absolute Lymphocytes Not Reportable Absolute Monocytes Not Reportable Absolute Eosinophils Not Reportable Absolute Basophils Not Reportable Carbonic Acid 1.29 HCO3/H2CO3 Ratio 18:1 ABG pH 7.36 ABG pCO2 42.8 ABG pO2 198.6 H ABG HCO3 23.6 ABG O2 Saturation 99.3 H ABG Base Excess -1.8 FiO2 50% Sodium Potassium Chloride Carbon Dioxide Anion Gap BUN Creatinine Est GFR ( Amer) Est GFR (Non-Af Amer) Glucose Calcium Total Bilirubin AST ALT Alkaline Phosphatase Total Protein Albumin Urine Color YELLOW Urine Appearance CLEAR Urine pH 6.0 Ur Specific [place] 1.008 Urine Protein NEGATIVE Urine Glucose (UA) 150 H Urine Ketones NEGATIVE Urine Blood NEGATIVE Urine Nitrite NEGATIVE Ur Leukocyte Esterase NEGATIVE Urine WBC (Auto) 0 Urine RBC (Auto) 0 04/08/16 12:44 WBC RBC Hgb Hct MCV MCH MCHC RDW Plt Count Seg Neutrophils % Lymphocytes % Monocytes % Eosinophils % Basophils % Absolute Neutrophils Absolute Lymphocytes Absolute Monocytes Absolute Eosinophils Absolute Basophils Carbonic Acid HCO3/H2CO3 Ratio ABG pH ABG pCO2 ABG pO2 ABG HCO3 ABG O2 Saturation ABG Base Excess FiO2 Sodium 141.0 Potassium 4.5 Chloride 106 Carbon Dioxide 24 Anion Gap 11 BUN 50 H Creatinine 1.48 H Est GFR ( Amer) 58 L Est GFR (Non-Af Amer) 48 L Glucose 93 Calcium 9.7 Total Bilirubin 1.0 AST 56 ALT 71 Alkaline Phosphatase 125 Total Protein 5.7 L Albumin 2.7 L Urine Color Urine Appearance Urine pH Ur Specific [place] Urine Protein Urine Glucose (UA) Urine Ketones Urine Blood Urine Nitrite Ur Leukocyte Esterase Urine WBC (Auto) Urine RBC (Auto) 04/04/16 18:40 Blood Blood Culture - Final Staphylococcus Aureus 04/04/16 17:15 Blood Blood Culture - Final Staphylococcus Aureus Impressions: Lower Extremity MRI 04/04/16 00:00 IMPRESSION: 1. Marked ankle deformity as described. 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 No evidence of overt osteomyelitis. Extensive tenosynovitis. Head CT 04/04/16 05:35 IMPRESSION: NORMAL BRAIN CT WITHOUT CONTRAST. Abdomen Ultrasound 04/05/16 00:00 IMPRESSION: Fatty liver. No gallstones. Ankle X-Ray 04/05/16 10:45 IMPRESSION: As above. Chest X-Ray 04/08/16 00:00 IMPRESSION: Question early or developing right mid lung infiltrate from asymmetric edema versus pneumonia. Bibasilar bandlike atelectasis Assessment & Plan - Diagnosis (1) Septic arthritis of left ankle Qualifiers: Septic arthritis organism: streptococcal Qualified Code(s): M00.272 - Other streptococcal arthritis, left ankle and foot Is this a current diagnosis for this admission?: YesPlan: Patient's leukocytosis continues to elevate. Currently there is no septic shock but given the severity of his septic arthritis I feel definitive treatment includes irrigation and debridement of his left ankle. Unfortunately given his history of hemophilia we are unable to adequately protect against intraoperative and postoperative bleeding and he requires a tertiary care facility. We will continue to monitor him clinically.
--- NOTE | 2016-04-08 15:09 | Progress Note ---
Provider Note Provider Note: Discussed various alternative treatment options. In the face of septic arthritis a additional option but by no means definitive treatment would include serial aspirations of the left ankle. After discussing risks and benefits to the patient and family the joint decision was made to proceed with aspiration and saline irrigation to the left ankle. Risks discussed include bleeding, pain, failure to relieve symptoms. After discussing risks patient and family verbalized understanding. Left Ankle was prepped with betadine and alcohol. Utilizing a lateral approach an 18G needle was inserted laterally at the area of fluid on MRI, thick purulent material w/ a combination of blood was aspirated. Patient tolerated procedure well. Wounds were dressed with sterile 4x4 and loosely applied valerie bandage.
[2016-04-08] MEDS ORDERED: ALBUTEROL SULFATE 0.083% NEB 2.5 MG/3 ML AMPUL NEB PRN (15:26)
--- NOTE | 2016-04-08 15:32 | PDOC TRANSFER SUMMARY ---
General Admission Date/PCP: 04/04/16 09:58 Admission Date: 04/04/16 Transfer Date: 04/08/16 - at bed availability Accepting Facility: [facility] Accepting Physician: Gelacio Resuscitation Status: Full Code - Transfer Diagnosis (1) Acute hypoxemic respiratory failure Current Visit: Yes Diagnosis Summary: Continue BiPAP for respiratory support for now. ABG is compensated at this time. I have discussed patient's condition with multiple family members and advised them that if patient does not do well on noninvasive ventilation that we would transfer him to the intensive care unit and proceed with invasive ventilation. (2) Right middle lobe pneumonia Current Visit: Yes Diagnosis Summary: Likely bacterial. Patient is already on IV Zyvox and IV clindamycin for ankle infection. I will add IV aztreonam for additional gram-negative coverage. (3) Sepsis Current Visit: Yes Diagnosis Summary: Patient has clinically improved with regard to sepsis since admission. He is now afebrile. His blood pressure is now stable. His liver function have normalized. His kidney function is markedly improved. He maintains a leukocytosis, however I think this will be the case until he has definitive surgical treatment of his ankle infection. (4) Septic arthritis of left ankle Current Visit: Yes Diagnosis Summary: Patient is being followed by orthopedics. He is on IV Zyvox and IV clindamycin. He is awaiting transfer to [facility] for definitive surgical management. (5) Staphylococcus aureus bacteremia Current Visit: Yes Diagnosis Summary: Patient is growing methicillin sensitive staph aureus, however he does have a history of MRSA. We have been advised by infectious disease to continue with current antibiotic management which includes IV Zyvox and IV clindamycin until patient has definitive surgical treatment. (6) Acute kidney injury Current Visit: Yes Diagnosis Summary: This is dramatically improved from an admission creatinine of 3.7 to a current creatinine of 1.48. I'm not sure what patient's baseline. (7) Chronic kidney disease, stage III (moderate) Current Visit: Yes (8) Benign prostatic hyperplasia Current Visit: Yes (9) Chronic obstructive pulmonary disease Current Visit: Yes Diagnosis Summary: Scheduled duo nebs. When necessary albuterol nebulizer treatments. Prednisone 10 mg daily currently. (10) Coronary artery disease Current Visit: Yes Diagnosis Summary: Continue Coreg. Antiplatelet therapy hold for upcoming surgery. 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 (12) Obesity (BMI 30-39.9) Current Visit: Yes (13) Opiate dependence, continuous Current Visit: Yes (14) Peripheral vascular disease Current Visit: Yes (15) DANGELO (obstructive sleep apnea) Current Visit: Yes (16) Abnormal LFTs Current Visit: Yes Diagnosis Summary: Now normal. Likely secondary to septic shock. Interval quadrant ultrasound also shows fatty liver disease, gallbladder normal. - Transfer Medications Home Medications: Albuterol Sulfate [Albuterol Sulfate 2.5mg/3 mL] 2.5 mg IH PRN PRN 04/04/16 Albuterol Sulfate [Proair Hfa Inhalation Aerosol 8.5 gm Mdi] 1 puff IH Q4HP PRN 04/04/16 Carvedilol [Coreg] 12.5 mg PO DAILY 04/04/16 Celecoxib [Celebrex 200 mg Capsule] 200 mg PO DAILY 04/04/16 Citalopram Hydrobromide [Celexa 40 mg Tablet] 40 mg PO DAILY 04/04/16 Esomeprazole Magnesium [Nexium] 40 mg PO DAILY 04/04/16 Furosemide [Lasix 40 mg Tablet] 40 mg PO Q2DAYS PRN 04/04/16 Gabapentin 600 mg PO BID 04/04/16 Hydromorphone HCl [Dilaudid] 4 mg PO Q4HP PRN 04/04/16 Losartan Potassium 100 mg PO DAILY 04/04/16 Nitroglycerin [Nitrostat 0.4 mg (1/150 Gr) Tabs 25/Bottle] 1 tab SL Q5MP PRN 01/09 Prednisone 10 mg PO DAILY 04/04/16 Tamsulosin HCl [Flomax 0.4 mg Cap.sr] 0.4 mg PO DAILY 04/04/16 Tiotropium [place] [Spiriva Handihaler 18 mcg/dose (30 Dose)] 1 cap IH DAILY 01/09 Ipratropium/Albuterol Sulfate [Duoneb 3 ml Ampul] 3 ml NEB QIDP PRN 04/08/16 Transfer Medications: Current Medications Acetaminophen (Tylenol 325 Mg Tablet) 650 mg PO Q8HP PRN Stop: 05/06/16 23:14 Last Admin: 04/07/16 00:11 Dose: 650 mg Al Hydrox/Mg Hydrox/Simethicone (Maalox Plus Susp 30 Udcup) 30 ml PO Q4HP PRN PRN Reason: HEARTBURN Stop: 05/05/16 18:21 Last Admin: 04/05/16 20:27 Dose: 30 ml Albuterol/Ipratropium (Duoneb 3 Ml Ampul) 3 ml NEB [id number] Stop: 05/08/16 00:27 Last Admin: 04/08/16 08:59 Dose: 3 ml Carvedilol (Coreg 12.5 Mg Tablet) 3.125 mg PO DAILY ALBINO Stop: 05/07/16 09:59 Last Admin: 04/08/16 09:54 Dose: 3.125 mg Citalopram Hydrobromide (Celexa 20 Mg Tablet) 40 mg PO DAILY ALBINO Stop: 05/05/16 09:59 Last Admin: 04/05/16 10:11 Dose: 40 mg Gabapentin (Neurontin 300 Mg Capsule) 600 mg PO BID ALBINO Stop: 05/04/16 17:59 Last Admin: 04/08/16 09:54 Dose: 600 mg Hydromorphone HCl (Dilaudid 2 Mg Tablet) 2 mg PO Q4HP PRN PRN Reason: PAIN Stop: 04/11/16 15:27 Last Admin: 04/08/16 01:13 Dose: 2 mg Linezolid (Zyvox Rtu 600 Mg/300 Ml Premixed) 300 mls @ 300 mls/hr IV Q12 ALBINO Stop: 04/12/16 21:59 Last Admin: 04/08/16 09:51 Dose: 300 ml Clindamycin Phosphate/Dextrose (Cleocin Rtu 900 Mg/D5w 50 Ml Premix) 50 mls @ 50 mls/hr IV Q8A ALBINO Stop: 04/12/16 17:59 Last Admin: 04/08/16 09:55 Dose: 50 ml Aztreonam 1.5 gm/ Dextrose 100 mls @ 50 mls/hr IV Q8 ALBINO Stop: 04/15/16 15:14 Lansoprazole (Prevacid 30 Mg Odt Tablet) 30 mg PO DAILY ALBINO Stop: 05/05/16 09:59 Last Admin: 04/08/16 09:54 Dose: 30 mg Lorazepam (Ativan 0.5 Mg Tablet) 0.5 mg PO TIDP PRN Stop: 04/15/16 12:59 Nitroglycerin (Nitrostat 0.4 Mg (1/150 Gr) Tabs 25/Bottle) 1 tab SL Q5MP PRN Stop: 05/04/16 15:26 Prednisone (Deltasone 10 Mg Tablet) 10 mg PO DAILY ALBINO Stop: 05/05/16 09:59 Last Admin: 04/08/16 09:54 Dose: 10 mg Sodium Chloride (Saline Flush 2.5 Ml Monoject Prefil Syrin) 2.5 ml IV Q8 ALBINO Stop: 05/04/16 13:59 Last Admin: 04/08/16 05:34 Dose: 2.5 ml Tamsulosin HCl (Flomax 0.4 Mg Cap.Sr) 0.4 mg PO QPM ALBINO Stop: 05/04/16 17:59 Last Admin: 04/07/16 19:11 Dose: 0.4 mg Albuterol nebulizer treatment every 6 hours when necessary - Allergies Allergies/Adverse Reactions: Penicillins Allergy (Severe, Verified 04/04/16 04:47) Anaphylaxis - Diet/Activity Discharge Diet: Cardiac Hospital Course Hospital Course: See above. Physical Exam Vital Signs: Temp Pulse Resp BP Pulse Ox 98.9 F 108 H 24 H 163/94 H 100 04/08/16 07:37 04/08/16 09:00 04/08/16 09:00 04/08/16 07:37 04/08/16 07:37 Intake & Output 04/07/16 04/08/16 04/09/16 06:59 06:59 06:59 Intake Total 4510 4075 Output Total 700 1975 Balance 3810 2100 Weight 129 kg 135.6 kg GENERAL: No acute distress HEENT: Conjunctiva clear, nonicteric, moist mucous membranes, no JVD, midline trachea RESPIRATORY: Rhonchi heard and anterior right lung field CARDIAC: Regular rate and rhythm, no murmurs/gallops/rubs ABDOMEN: Soft, nondistended, nontender, positive bowel sounds, no rebound, no guarding EXTREMETIES: Significant swelling involving left ankle NEUROLOGIC: Alert, oriented to person/place/time, CN's grossly intact, no focal deficits SKIN: No rash, wounds PSYCH: Normal mood, normal affect Results Laboratory Results: 04/08/16 12:44 04/08/16 12:44 04/07/16 04/08/1617 18:07 12:15 12:44 WBC 19.1 H RBC 3.16 L Hgb 9.9 L Hct 30.1 L MCV 95 MCH 31.2 MCHC 32.7 RDW 13.1 Plt Count 602 H Seg Neutrophils % Not Reportable Lymphocytes % Not Reportable Monocytes % Not Reportable Eosinophils % Not Reportable Basophils % Not Reportable Absolute Neutrophils Not Reportable Absolute Lymphocytes Not Reportable Absolute Monocytes Not Reportable Absolute Eosinophils Not Reportable Absolute Basophils Not Reportable Carbonic Acid 1.29 HCO3/H2CO3 Ratio 18:1 ABG pH 7.36 ABG pCO2 42.8 ABG pO2 198.6 H ABG HCO3 23.6 ABG O2 Saturation 99.3 H ABG Base Excess -1.8 FiO2 50% Sodium Potassium Chloride Carbon Dioxide Anion Gap BUN Creatinine Est GFR ( Amer) Est GFR (Non-Af Amer) Glucose Calcium Total Bilirubin AST ALT Alkaline Phosphatase Total Protein Albumin Urine Color YELLOW Urine Appearance CLEAR Urine pH 6.0 Ur Specific [place] 1.008 Urine Protein NEGATIVE Urine Glucose (UA) 150 H Urine Ketones NEGATIVE Urine Blood NEGATIVE Urine Nitrite NEGATIVE Ur Leukocyte Esterase NEGATIVE Urine WBC (Auto) 0 Urine RBC (Auto) 0 04/08/16 12:44 WBC RBC Hgb Hct MCV MCH MCHC RDW Plt Count Seg Neutrophils % Lymphocytes % Monocytes % Eosinophils % Basophils % Absolute Neutrophils Absolute Lymphocytes Absolute Monocytes Absolute Eosinophils Absolute Basophils Carbonic Acid HCO3/H2CO3 Ratio ABG pH ABG pCO2 ABG pO2 ABG HCO3 ABG O2 Saturation ABG Base Excess FiO2 Sodium 141.0 Potassium 4.5 Chloride 106 Carbon Dioxide 24 Anion Gap 11 BUN 50 H Creatinine 1.48 H Est GFR ( Amer) 58 L Est GFR (Non-Af Amer) 48 L Glucose 93 Calcium 9.7 Total Bilirubin 1.0 AST 56 ALT 71 Alkaline Phosphatase 125 Total Protein 5.7 L Albumin 2.7 L Urine Color Urine Appearance Urine pH Ur Specific [place] Urine Protein Urine Glucose (UA) Urine Ketones Urine Blood Urine Nitrite Ur Leukocyte Esterase Urine WBC (Auto) Urine RBC (Auto) 04/04/16 18:40 Blood Blood Culture - Final Staphylococcus Aureus 04/04/16 17:15 Blood Blood Culture - Final Staphylococcus Aureus 04/05/16 21:30 Gram Stain - Preliminary Ankle - Left Wound Culture - Preliminary Gram Positive Cocci Clusters 04/04/16 14:23 MRSA Surveillance Culture - Final Nasophary (Mrsa Only) NO MRSA RECOVERED 04/04/16 06:00 Urine Culture - Final Catheterized Urine NO GROWTH 2 DAYS Impressions: Lower Extremity MRI 04/04/16 00:00 IMPRESSION: 1. Marked ankle deformity as described. 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 No evidence of overt osteomyelitis. Extensive tenosynovitis. Head CT 04/04/16 05:35 IMPRESSION: NORMAL BRAIN CT WITHOUT CONTRAST. Abdomen Ultrasound 04/05/16 00:00 IMPRESSION: Fatty liver. No gallstones. Ankle X-Ray 04/05/16 10:45 IMPRESSION: As above. Chest X-Ray 04/08/16 00:00 IMPRESSION: Question early or developing right mid lung infiltrate from asymmetric edema versus pneumonia. Bibasilar bandlike atelectasis Plan Discharge Plan: Transfer to [facility] for definitive orthopedic and hematologic management. Time Spent: Greater than 30 Minutes
[2016-04-08] MEDS: AZTREONAM 1.5 GM in DEXTROSE 5%-WATER 100 ML IV SCH (17:49)
[2016-04-08] MEDS: TAMSULOSIN HCL 0.4 MG CAP.SR.24H PO SCH (17:51)
[2016-04-08] MEDS: IPRATROPIUM/ALBUTEROL 0.5-2.5 MG/3 ML AMPUL NEB SCH (21:10)
[2016-04-09] MEDS: CLINDAMYCIN 900 MG/D5W RTU 50 ML IV SCH ×3 (03:25→17:42)
[2016-04-09] MEDS: AZTREONAM 1.5 GM in DEXTROSE 5%-WATER 100 ML IV SCH ×3 (03:26→17:42)
[2016-04-09 05:34] LABS: HEMATOCRIT 27.2 % (37.9-51.0); HGB HCT DIFFERENCE -0.2; MEAN CORPUSCULAR HEMOGLOBIN 32.1 pg (27.0-33.4); MEAN CORPUSCULAR HGB CONC 33.2 g/dL (32.0-36.0); MEAN CORPUSCULAR VOLUME 97 fl (80-97); RED BLOOD COUNT 2.81 10^6/uL (4.35-5.55); RED CELL DISTRIBUTION WIDTH 13.6 % (11.5-14.0); WHITE BLOOD COUNT 13.8 10^3/uL (4.0-10.5)
[2016-04-09 05:40] LABS: ANION GAP 11 (5-19); BLOOD UREA NITROGEN 37 mg/dL (7-20); CALCIUM 9.7 mg/dL (8.4-10.2); CARBON DIOXIDE 28 mmol/L (22-30); CHLORIDE 102 mmol/L (98-107); CREATININE RESULT 1.21 mg/dL (0.52-1.25); GLUCOSE 90 mg/dL (75-110); POTASSIUM 4.4 mmol/L (3.6-5.0); SODIUM 140.6 mmol/L (137-145)
[2016-04-09 06:00] LABS: BAND NEUTROPHILS % (MANUAL) 2 % (3-5); BASOPHILS % (MANUAL) 0 % (0-2); EOSINOPHILS % (MANUAL) 0 % (0-6); LYMPHOCYTES % (MANUAL) 9 % (13-45); TOTAL CELLS COUNTED 100
[2016-04-09 06:02] LABS: RBC MORPHOLOGY COMMENT NORMO-CYTIC/CHROMIC
[2016-04-09] MEDS: HYDROMORPHONE HCL 2 MG TABLET PO PRN ×3 (07:30→20:33)
[2016-04-09] MEDS: IPRATROPIUM/ALBUTEROL 0.5-2.5 MG/3 ML AMPUL NEB SCH ×3 (07:49→21:21)
[2016-04-09] MEDS: LINEZOLID 300 ML IV SCH ×2 (10:16→22:06)
[2016-04-09] MEDS: GABAPENTIN 300 MG CAPSULE PO SCH ×2 (10:16→17:41)
[2016-04-09] MEDS: PREDNISONE 10 MG TABLET PO SCH (10:16)
[2016-04-09] MEDS: LANSOPRAZOLE 30 MG TAB.RAP.DR PO SCH (10:17)
[2016-04-09] MEDS: CARVEDILOL 12.5 MG TABLET PO SCH (10:17)
[2016-04-09] MEDS ORDERED: HYDROCODONE/ACETAMINOPHEN 10-325 MG TABLET PO PRN (12:20)
--- NOTE | 2016-04-09 16:35 | PDOC PROGRESS REPORT ---
Subjective Progress Note for:: 04/09/16 Subjective:: Patient seen and evaluated this afternoon. Family at bedside. Patient states his pain in his leg has increased since the aspiration continues to have occasional shortness of breath requiring CPAP. Was changed to hydrocodone which this has not improved his discomfort. Current pain 5/10. Denies fever chills or sweats. Physical Exam Vital Signs: Temp Pulse Resp BP Pulse Ox 99.5 F 86 16 134/66 H 100 04/09/16 11:35 04/09/16 14:50 04/09/16 14:50 04/09/16 11:35 04/09/16 11:35 Intake & Output 04/08/16 04/09/16 04/10/16 06:59 06:59 06:59 Intake Total 4075 3164 Output Total 1975 1000 Balance 2100 2164 Weight 135.6 kg 136.2 kg General appearance: PRESENT: no acute distress, cooperative, disheveled Eye exam: PRESENT: EOMI Ear exam: PRESENT: normal external ear exam Respiratory exam: PRESENT: unlabored Pulses: PRESENT: +1 pedal pulses bilateral Vascular exam: PRESENT: normal capillary refill Musculoskeletal exam: PRESENT: other - Left lower extremity: Notable swelling throughout the ankle with mild ecchymosis laterally. Mild increased swelling at the area of lateral aspiration no significant tracking erythema. No tenderness along the calf. Pain with ankle range of motion. Cap refill less than 2 seconds Neurological exam: PRESENT: alert, awake, oriented to person, oriented to place , oriented to time, oriented to situation Psychiatric exam: PRESENT: normal mood Results Laboratory Results: 04/09/16 05:06 04/09/16 05:09 04/09/16 04/09/16 05:06 05:09 WBC 13.8 H RBC 2.81 L Hgb 9.0 L Hct 27.2 L MCV 97 MCH 32.1 MCHC 33.2 RDW 13.6 Plt Count 556 H Seg Neutrophils % Not Reportable Lymphocytes % Not Reportable Monocytes % Not Reportable Eosinophils % Not Reportable Basophils % Not Reportable Absolute Neutrophils Not Reportable Absolute Lymphocytes Not Reportable Absolute Monocytes Not Reportable Absolute Eosinophils Not Reportable Absolute Basophils Not Reportable Sodium 140.6 Potassium 4.4 Chloride 102 Carbon Dioxide 28 Anion Gap 11 BUN 37 H Creatinine 1.21 Est GFR ( Amer) > 60 Est GFR (Non-Af Amer) > 60 Glucose 90 Calcium 9.7 04/05/16 21:30 Ankle - Left Gram Stain - Final 04/05/16 21:30 Ankle - Left Wound Culture - Final Staphylococcus Aureus No Anaerobic Organisms Impressions: Lower Extremity MRI 04/04/16 00:00 IMPRESSION: 1. Marked ankle deformity as described. 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 No evidence of overt osteomyelitis. Extensive tenosynovitis. Head CT 04/04/16 05:35 IMPRESSION: NORMAL BRAIN CT WITHOUT CONTRAST. Abdomen Ultrasound 04/05/16 00:00 IMPRESSION: Fatty liver. No gallstones. Ankle X-Ray 04/05/16 10:45 IMPRESSION: As above. Venous Doppler Study 04/09/16 00:00 IMPRESSION: NO EVIDENCE DVT OR SVT IN THE LEFT LEG. Chest X-Ray 04/09/16 08:33 IMPRESSION: Basilar densities as noted above. Other findings as noted above Assessment & Plan - Diagnosis (1) Septic arthritis of left ankle Qualifiers: Septic arthritis organism: streptococcal Qualified Code(s): M00.272 - Other streptococcal arthritis, left ankle and foot Is this a current diagnosis for this admission?: YesPlan: Patient suffers from septic arthritis of his left ankle unfortunately he is a hemophiliac is unable to be definitively treated at this can be possible given the lack of resources to treat hemophilia and follow it appropriately. Patient is high risk for operative intervention specifically bleeding secondary to his hemophilia he understands the infection is severe and the left ankle and certainly can progress in severity requiring below-knee amputation. Currently MRI fails to demonstrate evidence of underlying osteomyelitis since his aspiration yesterday his leukocytosis has improved currently patient is not on stable from a medical standpoint and is awaiting transfer.
[2016-04-09] MEDS: TAMSULOSIN HCL 0.4 MG CAP.SR.24H PO SCH (17:42)
--- NOTE | 2016-04-09 18:55 | PDOC PROGRESS REPORT ---
Subjective Progress Note for:: 04/09/16 Subjective:: Patient's breathing has significantly improved. He is now off BiPAP and stable on nasal cannula oxygen. He continues to have pain in his left leg. Patient denies fever, chills, headache, new focal weakness, chest pain, abdominal pain, nausea, vomiting, diarrhea, constipation. Physical Exam Vital Signs: Temp Pulse Resp BP Pulse Ox 98.5 F 72 18 121/70 95 04/09/16 15:24 04/09/16 15:24 04/09/16 15:24 04/09/16 15:24 04/09/16 15:24 Intake & Output 04/08/16 04/09/16 04/10/16 06:59 06:59 06:59 Intake Total 4075 3164 Output Total 1975 1000 Balance 2100 2164 Weight 135.6 kg 136.2 kg GENERAL: No acute distress HEENT: Conjunctiva clear, nonicteric, moist mucous membranes, no JVD, midline trachea RESPIRATORY: Clear to auscultation in all lung nieves anteriorly CARDIAC: Regular rate and rhythm, no murmurs/gallops/rubs ABDOMEN: Soft, nondistended, nontender, positive bowel sounds, no rebound, no guarding EXTREMETIES: Significant swelling involving left ankle NEUROLOGIC: Alert, oriented to person/place/time, CN's grossly intact, no focal deficits SKIN: No rash, wounds PSYCH: Normal mood, normal affect Results Laboratory Results: 04/09/16 05:06 04/09/16 05:09 04/09/16 04/09/16 05:06 05:09 WBC 13.8 H RBC 2.81 L Hgb 9.0 L Hct 27.2 L MCV 97 MCH 32.1 MCHC 33.2 RDW 13.6 Plt Count 556 H Seg Neutrophils % Not Reportable Lymphocytes % Not Reportable Monocytes % Not Reportable Eosinophils % Not Reportable Basophils % Not Reportable Absolute Neutrophils Not Reportable Absolute Lymphocytes Not Reportable Absolute Monocytes Not Reportable Absolute Eosinophils Not Reportable Absolute Basophils Not Reportable Sodium 140.6 Potassium 4.4 Chloride 102 Carbon Dioxide 28 Anion Gap 11 BUN 37 H Creatinine 1.21 Est GFR ( Amer) > 60 Est GFR (Non-Af Amer) > 60 Glucose 90 Calcium 9.7 04/05/16 21:30 Ankle - Left Gram Stain - Final 04/05/16 21:30 Ankle - Left Wound Culture - Final Staphylococcus Aureus No Anaerobic Organisms Impressions: Lower Extremity MRI 04/04/16 00:00 IMPRESSION: 1. Marked ankle deformity as described. 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 No evidence of overt osteomyelitis. Extensive tenosynovitis. Head CT 04/04/16 05:35 IMPRESSION: NORMAL BRAIN CT WITHOUT CONTRAST. Abdomen Ultrasound 04/05/16 00:00 IMPRESSION: Fatty liver. No gallstones. Ankle X-Ray 04/05/16 10:45 IMPRESSION: As above. Venous Doppler Study 04/09/16 00:00 IMPRESSION: NO EVIDENCE DVT OR SVT IN THE LEFT LEG. Chest X-Ray 04/09/16 08:33 IMPRESSION: Basilar densities as noted above. Other findings as noted above Assessment & Plan - Diagnosis (1) Acute hypoxemic respiratory failure Is this a current diagnosis for this admission?: YesPlan: Continue oxygen supplementation. This is secondary to pneumonia and COPD. (2) Right middle lobe pneumonia Is this a current diagnosis for this admission?: YesPlan: Patient is clinically stable on aztreonam, and Zyvox, clindamycin. This is likely bacterial with high probability of gram-negative organism given healthcare associated status. (3) Sepsis Is this a current diagnosis for this admission?: YesPlan: Much improved. Patient is now afebrile. White blood count is trending down. (4) Septic arthritis of left ankle Qualifiers: Septic arthritis organism: streptococcal Qualified Code(s): M00.272 - Other streptococcal arthritis, left ankle and foot Is this a current diagnosis for this admission?: YesPlan: This is being followed by orthopedics. Patient is awaiting transfer to [facility]. He will need surgical intervention but this is complicated by hemophilia. (5) Staphylococcus aureus bacteremia Is this a current diagnosis for this admission?: Yes (6) Acute kidney injury Is this a current diagnosis for this admission?: YesPlan: Kidney function now normal (7) Chronic kidney disease, stage III (moderate) Is this a current diagnosis for this admission?: Yes (8) Benign prostatic hyperplasia Qualifiers: Prostatic enlargement morphology: unspecified morphology Lower urinary tract symptom presence: symptoms absent Qualified Code(s): N40.0 - Benign prostatic hyperplasia without lower urinary tract symptoms Is this a current diagnosis for this admission?: Yes (9) Chronic obstructive pulmonary disease Qualifiers: COPD type: unspecified COPD Qualified Code(s): J44.9 - Chronic obstructive pulmonary disease, unspecified Is this a current diagnosis for this admission?: YesPlan: Continue scheduled duo nebs and p.r.n. albuterol (10) Coronary artery disease Qualifiers: Coronary Disease-Associated Artery/Lesion type: [place] artery [place] vs. 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 Secondary to septic shock. - Time Time Spent with patient: 35 or more minutes Anticipated discharge: [facility] Within: when bed available Disposition: Awaiting transfer to [facility].
[2016-04-09] MEDS: LORAZEPAM 0.5 MG TABLET PO PRN (22:06)
[2016-04-10] MEDS: AZTREONAM 1.5 GM in DEXTROSE 5%-WATER 100 ML IV SCH ×3 (02:59→18:31)
[2016-04-10] MEDS: CLINDAMYCIN 900 MG/D5W RTU 50 ML IV SCH ×2 (05:42→12:58)
[2016-04-10] MEDS: HYDROMORPHONE HCL 2 MG TABLET PO PRN ×5 (06:13→22:41)
[2016-04-10 07:54] LABS: PROTHROMBIN TIME 16.5 SEC (11.4-15.4)
[2016-04-10] MEDS: ACETAMINOPHEN 325 MG TABLET PO PRN (07:55)
[2016-04-10] MEDS: IPRATROPIUM/ALBUTEROL 0.5-2.5 MG/3 ML AMPUL NEB SCH ×3 (08:01→20:33)
[2016-04-10 08:03] LABS: HEMATOCRIT 29.7 % (37.9-51.0); HEMOGLOBIN 9.5 g/dL (13.5-17.0); HGB HCT DIFFERENCE -1.2; MEAN CORPUSCULAR HEMOGLOBIN 30.9 pg (27.0-33.4); MEAN CORPUSCULAR HGB CONC 32.2 g/dL (32.0-36.0); MEAN CORPUSCULAR VOLUME 96 fl (80-97); RED BLOOD COUNT 3.08 10^6/uL (4.35-5.55); RED CELL DISTRIBUTION WIDTH 13.6 % (11.5-14.0); WHITE BLOOD COUNT 16.7 10^3/uL (4.0-10.5)
[2016-04-10 08:17] LABS: ALANINE AMINOTRANSFERASE 73 U/L (21-72); ALBUMIN 2.5 g/dL (3.5-5.0); ALKALINE PHOSPHATASE 110 U/L (38-126); ANION GAP 10 (5-19); ASPARTATE AMINO TRANSFERASE 43 U/L (17-59); BILIRUBIN,TOTAL 0.8 mg/dL (0.2-1.3); BLOOD UREA NITROGEN 22 mg/dL (7-20); CALCIUM 9.6 mg/dL (8.4-10.2); CARBON DIOXIDE 30 mmol/L (22-30); CHLORIDE 100 mmol/L (98-107); CREATININE RESULT 1.01 mg/dL (0.52-1.25); GLUCOSE 86 mg/dL (75-110); POTASSIUM 4.6 mmol/L (3.6-5.0); SODIUM 139.9 mmol/L (137-145); TOTAL PROTEIN 5.6 g/dL (6.3-8.2)
--- NOTE | 2016-04-10 08:24 | PDOC PROGRESS REPORT ---
Subjective Progress Note for:: 04/10/16 Subjective:: Patient complains of pain this AM. Pain had been controlled with dilaudid. Denies fever/chills. Physical Exam Vital Signs: Temp Pulse Resp BP Pulse Ox 99.1 F 83 19 151/82 H 100 04/10/16 05:57 04/10/16 05:57 04/10/16 05:57 04/10/16 05:57 04/10/16 05:57 Intake & Output 04/09/16 04/10/16 04/11/16 06:59 06:59 06:59 Intake Total 3164 3525 Output Total 1000 3655 Balance 2164 -130 Weight 136.2 kg 136.9 kg General appearance: PRESENT: no acute distress Respiratory exam: PRESENT: unlabored Musculoskeletal exam: PRESENT: other - Left Ankle: Notable swelling laterally/ medially w/ painful ROM. Erythema 3cm proximal to ankle mortise, no significant change compared to previous exam. Pain w/ ROM. No streaking erythema proximally. Neurological exam: PRESENT: alert, awake, oriented to person, oriented to place , oriented to time, oriented to situation Results Laboratory Results: 04/05/16 21:30 Ankle - Left Gram Stain - Final 04/05/16 21:30 Ankle - Left Wound Culture - Final Staphylococcus Aureus No Anaerobic Organisms Impressions: Lower Extremity MRI 04/04/16 00:00 IMPRESSION: 1. Marked ankle deformity as described. 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 No evidence of overt osteomyelitis. Extensive tenosynovitis. Head CT 04/04/16 05:35 IMPRESSION: NORMAL BRAIN CT WITHOUT CONTRAST. Abdomen Ultrasound 04/05/16 00:00 IMPRESSION: Fatty liver. No gallstones. Ankle X-Ray 04/05/16 10:45 IMPRESSION: As above. Venous Doppler Study 04/09/16 00:00 IMPRESSION: NO EVIDENCE DVT OR SVT IN THE LEFT LEG. Chest X-Ray 04/09/16 08:33 IMPRESSION: Basilar densities as noted above. Other findings as noted above Assessment & Plan - Diagnosis (1) Septic arthritis of left ankle Qualifiers: Septic arthritis organism: streptococcal Qualified Code(s): M00.272 - Other streptococcal arthritis, left ankle and foot Is this a current diagnosis for this admission?: YesPlan: At this point patient will continue on IV ABX. However given the severity of his infection in the left ankle and septic arthritis patient requires formal definitive debridement but given his h/o hemophilia patient requires precise management of this condition at an outside tertiary center and surgical management at our facility places the patient at extreme risk of bleeding and morbidity. Continue to follow clinically until transfer complete.
[2016-04-10 08:28] LABS: MAGNESIUM 1.1 mg/dL (1.6-2.3)
[2016-04-10] MEDS ORDERED: MAGNESIUM SULFATE/D5W 100 ML IV SCH (08:45)
[2016-04-10 08:52] LABS: BAND NEUTROPHILS % (MANUAL) 2 % (3-5); BASOPHILS % (MANUAL) 0 % (0-2); EOSINOPHILS % (MANUAL) 1 % (0-6); LYMPHOCYTES % (MANUAL) 17 % (13-45); TOTAL CELLS COUNTED 100
[2016-04-10 08:57] LABS: TOXIC GRANULATION SLIGHT; TOXIC VACUOLATION PRESENT
[2016-04-10 08:58] LABS: HYPOCHROMASIA SLIGHT; POIKILOCYTOSIS 1+; POLYCHROMASIA SLIGHT; ROULEAUX SLIGHT; STOMATOCYTES 1+
[2016-04-10] MEDS: LANSOPRAZOLE 30 MG TAB.RAP.DR PO SCH (09:49)
[2016-04-10] MEDS: MAGNESIUM OXIDE 400 MG TABLET PO SCH ×2 (09:49→18:31)
[2016-04-10] MEDS: CARVEDILOL 12.5 MG TABLET PO SCH (09:49)
[2016-04-10] MEDS: PREDNISONE 10 MG TABLET PO SCH (09:49)
[2016-04-10] MEDS: GABAPENTIN 300 MG CAPSULE PO SCH ×2 (09:50→18:31)
[2016-04-10] MEDS: LORAZEPAM 0.5 MG TABLET PO PRN (09:50)
[2016-04-10] MEDS: LINEZOLID 300 ML IV SCH ×2 (12:00→22:40)
--- NOTE | 2016-04-10 15:50 | PDOC PROGRESS REPORT ---
Subjective Progress Note for:: 04/10/16 Subjective:: Patient's breathing has significantly improved. He continues to have pain in his left leg. Patient denies fever, chills, headache, new focal weakness, chest pain, abdominal pain, nausea, vomiting, diarrhea, constipation. Physical Exam Vital Signs: Temp Pulse Resp BP Pulse Ox 98.4 F 90 18 151/82 H 96 04/10/16 07:16 04/10/16 13:50 04/10/16 13:50 04/10/16 05:57 04/10/16 13:50 Intake & Output 04/09/16 04/10/16 04/11/16 06:59 06:59 06:59 Intake Total 3164 3525 Output Total 1000 3655 Balance 2164 -130 Weight 136.2 kg 136.9 kg GENERAL: No acute distress HEENT: Conjunctiva clear, nonicteric, moist mucous membranes, no JVD, midline trachea RESPIRATORY: Clear to auscultation in all lung nieves anteriorly CARDIAC: Regular rate and rhythm, no murmurs/gallops/rubs ABDOMEN: Soft, nondistended, nontender, positive bowel sounds, no rebound, no guarding EXTREMETIES: Significant swelling involving left ankle NEUROLOGIC: Alert, oriented to person/place/time, CN's grossly intact, no focal deficits SKIN: No rash, wounds PSYCH: Normal mood, normal affect Results Laboratory Results: 04/10/16 07:09 04/10/16 07:09 04/10/16 04/10/16 07:09 07:09 WBC 16.7 H RBC 3.08 L Hgb 9.5 L Hct 29.7 L MCV 96 MCH 30.9 MCHC 32.2 RDW 13.6 Plt Count 587 H Seg Neutrophils % Not Reportable Lymphocytes % Not Reportable Monocytes % Not Reportable Eosinophils % Not Reportable Basophils % Not Reportable Absolute Neutrophils Not Reportable Absolute Lymphocytes Not Reportable Absolute Monocytes Not Reportable Absolute Eosinophils Not Reportable Absolute Basophils Not Reportable Sodium 139.9 Potassium 4.6 Chloride 100 Carbon Dioxide 30 Anion Gap 10 BUN 22 H Creatinine 1.01 Est GFR ( Amer) > 60 Est GFR (Non-Af Amer) > 60 Glucose 86 Calcium 9.6 Magnesium 1.1 L* Total Bilirubin 0.8 AST 43 ALT 73 H Alkaline Phosphatase 110 Total Protein 5.6 L Albumin 2.5 L 04/05/16 21:30 Ankle - Left Gram Stain - Final 04/05/16 21:30 Ankle - Left Wound Culture - Final Staphylococcus Aureus No Anaerobic Organisms Impressions: Lower Extremity MRI 04/04/16 00:00 IMPRESSION: 1. Marked ankle deformity as described. 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 No evidence of overt osteomyelitis. Extensive tenosynovitis. Head CT 04/04/16 05:35 IMPRESSION: NORMAL BRAIN CT WITHOUT CONTRAST. Abdomen Ultrasound 04/05/16 00:00 IMPRESSION: Fatty liver. No gallstones. Ankle X-Ray 04/05/16 10:45 IMPRESSION: As above. Venous Doppler Study 04/09/16 00:00 IMPRESSION: NO EVIDENCE DVT OR SVT IN THE LEFT LEG. Chest X-Ray 04/09/16 08:33 IMPRESSION: Basilar densities as noted above. Other findings as noted above Assessment & Plan - Diagnosis (1) Acute hypoxemic respiratory failure Is this a current diagnosis for this admission?: YesPlan: Continue oxygen supplementation. This is secondary to pneumonia and COPD. (2) Right middle lobe pneumonia Is this a current diagnosis for this admission?: YesPlan: Patient is clinically stable on aztreonam, and Zyvox. Discontinue clindamycin as this provides no added benefit. This is likely bacterial with high probability of gram-negative organism given healthcare associated status. (3) Sepsis Is this a current diagnosis for this admission?: YesPlan: Much improved. Kidney function now stable. Liver function improved. Patient is now afebrile. (4) Septic arthritis of left ankle Qualifiers: Septic arthritis organism: streptococcal Qualified Code(s): M00.272 - Other streptococcal arthritis, left ankle and foot Is this a current diagnosis for this admission?: YesPlan: This is being followed by orthopedics. Patient is currently on a waiting list at [facility] and [facility]. He will need surgical intervention but this is complicated by hemophilia. Accepting physician at [facility] is Dr. Murray Patient family is very irate and upset that I don't transfer patient immediately. I have explained to them on multiple occasions that I cannot transfer patient without a bed offer from accepting facility. Although I understand and sympathize with their frustration I have no control over the bed situation at the accepting tertiary care facilities. (5) Staphylococcus aureus bacteremia Is this a current diagnosis for this admission?: Yes (6) Acute kidney injury Is this a current diagnosis for this admission?: YesPlan: Kidney function now normal. (7) Chronic kidney disease, stage III (moderate) Is this a current diagnosis for this admission?: Yes (8) Benign prostatic hyperplasia Qualifiers: Prostatic enlargement morphology: unspecified morphology Lower urinary tract symptom presence: symptoms absent Qualified Code(s): N40.0 - Benign prostatic hyperplasia without lower urinary tract symptoms Is this a current diagnosis for this admission?: Yes (9) Chronic obstructive pulmonary disease Qualifiers: COPD type: unspecified COPD Qualified Code(s): J44.9 - Chronic obstructive pulmonary disease, unspecified Is this a current diagnosis for this admission?: YesPlan: Continue scheduled duo nebs and p.r.n. albuterol (10) Coronary artery disease Qualifiers: Coronary Disease-Associated Artery/Lesion type: [place] artery [place] vs. transplanted heart: [place] heart Associated angina: without angina Qualified Code(s): I25.10 - Atherosclerotic heart disease of [place] coronary artery without angina pectoris Is this a current diagnosis for this admission?: YesPlan: Continue Coreg. He is not able to be on antiplatelet therapy secondary to hemophilia. 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 Secondary to septic shock. (17) DVT prophylaxis Is this a current diagnosis for this admission?: YesPlan: Avoid pharmacologic prophylaxis secondary to hemophilia. - Time Time Spent with patient: 35 or more minutes Anticipated discharge: [facility]
[2016-04-10] MEDS: TAMSULOSIN HCL 0.4 MG CAP.SR.24H PO SCH (18:31)
[2016-04-11] MEDS: HYDROMORPHONE HCL 2 MG TABLET PO PRN ×5 (02:03→17:35)
[2016-04-11] MEDS: AZTREONAM 1.5 GM in DEXTROSE 5%-WATER 100 ML IV SCH (02:04)
[2016-04-11] MEDS: ACETAMINOPHEN 325 MG TABLET PO PRN (04:07)
[2016-04-11 05:58] LABS: HEMATOCRIT 27.6 % (37.9-51.0); HEMOGLOBIN 8.8 g/dL (13.5-17.0); HGB HCT DIFFERENCE -1.2; MEAN CORPUSCULAR HEMOGLOBIN 30.9 pg (27.0-33.4); MEAN CORPUSCULAR VOLUME 97 fl (80-97); RED BLOOD COUNT 2.86 10^6/uL (4.35-5.55); RED CELL DISTRIBUTION WIDTH 13.3 % (11.5-14.0); WHITE BLOOD COUNT 16.8 10^3/uL (4.0-10.5)
[2016-04-11 06:13] LABS: ALANINE AMINOTRANSFERASE 66 U/L (21-72); ALBUMIN 2.3 g/dL (3.5-5.0); ALKALINE PHOSPHATASE 96 U/L (38-126); ANION GAP 9 (5-19); ASPARTATE AMINO TRANSFERASE 38 U/L (17-59); BILIRUBIN,TOTAL 0.6 mg/dL (0.2-1.3); BLOOD UREA NITROGEN 15 mg/dL (7-20); CALCIUM 9.5 mg/dL (8.4-10.2); CARBON DIOXIDE 31 mmol/L (22-30); CHLORIDE 98 mmol/L (98-107); CREATININE RESULT 0.81 mg/dL (0.52-1.25); GLUCOSE 89 mg/dL (75-110); POTASSIUM 4.4 mmol/L (3.6-5.0); SODIUM 137.7 mmol/L (137-145); TOTAL PROTEIN 5.3 g/dL (6.3-8.2)
[2016-04-11 06:23] LABS: BAND NEUTROPHILS % (MANUAL) 2 % (3-5); BASOPHILS % (MANUAL) 0 % (0-2); EOSINOPHILS % (MANUAL) 0 % (0-6); LYMPHOCYTES % (MANUAL) 12 % (13-45); MAGNESIUM 1.2 mg/dL (1.6-2.3); TOTAL CELLS COUNTED 100
[2016-04-11 06:25] LABS: TOXIC GRANULATION SLIGHT
[2016-04-11 06:26] LABS: OVALOCYTES SLIGHT; POIKILOCYTOSIS SLIGHT
[2016-04-11] MEDS: MAGNESIUM SULFATE/D5W 1 GM/100 ML RTUPB IV SCH ×2 (07:53→12:42)
[2016-04-11] MEDS: IPRATROPIUM/ALBUTEROL 0.5-2.5 MG/3 ML AMPUL NEB SCH ×2 (07:56→13:57)
[2016-04-11] MEDS ORDERED: CEFAZOLIN 2 GM/D5W RTU 2 GM/50 ML RTUPB IV ONE (09:30)
[2016-04-11] MEDS: MAGNESIUM OXIDE 400 MG TABLET PO SCH ×3 (09:58→17:27)
[2016-04-11] MEDS: CARVEDILOL 12.5 MG TABLET PO SCH (09:58)
[2016-04-11] MEDS: PREDNISONE 10 MG TABLET PO SCH (09:59)
[2016-04-11] MEDS: LANSOPRAZOLE 30 MG TAB.RAP.DR PO SCH (09:59)
[2016-04-11] MEDS: GABAPENTIN 300 MG CAPSULE PO SCH (09:59)
[2016-04-11] MEDS: LINEZOLID 300 ML IV SCH (11:07)
[2016-04-11] MEDS ORDERED: FENTANYL 25 MCG/HR PATCH.TD72 TD ONE (12:30)
[2016-04-11] MEDS ORDERED: HYDROMORPHONE HCL INJ/PF 2 MG/ML AMPULE IV ONE (12:30)
[2016-04-11] MEDS ORDERED: MAG HYDROX/AL HYDROX/SIMETH SUSP 30 ML UDCUP PO ONE (12:30)
[2016-04-11] MEDS ORDERED: CARVEDILOL 3.125 MG TABLET PO ONE (13:00)
[2016-04-11 13:03] LABS: ANION GAP 11 (5-19); BLOOD UREA NITROGEN 14 mg/dL (7-20); CARBON DIOXIDE 32 mmol/L (22-30); CHLORIDE 98 mmol/L (98-107); CREATINE KINASE < 20 U/L (55-170); GLUCOSE 118 mg/dL (75-110); POTASSIUM 4.3 mmol/L (3.6-5.0); SODIUM 140.8 mmol/L (137-145)
[2016-04-11 13:15] LABS: CREATINE KINASE MB 0.83 ng/mL (<4.55)
[2016-04-11 13:18] LABS: TROPONIN I 0.158 ng/mL
[2016-04-11] MEDS ORDERED: NITROGLYCERIN 2% OINTMENT 1 GM PACKET ONE (13:24)
[2016-04-11] MEDS ORDERED: GABAPENTIN 300 MG CAPSULE PO SCH (14:00)
[2016-04-11] MEDS ORDERED: NITROGLYCERIN 2% OINTMENT 1 GM PACKET TP ONE (14:00)
[2016-04-11] MEDS: CEFAZOLIN 2 GM/D5W RTU 2 GM/50 ML RTUPB IV SCH ×2 (14:10→17:26)
[2016-04-11] MEDS: CLINDAMYCIN HCL 150 MG CAPSULE PO SCH ×2 (15:00→18:38)
[2016-04-11 16:20] VITALS: BP 137/78
--- NOTE | 2016-04-11 16:26 | EKG REPORT ---
SEVERITY:- ABNORMAL ECG - SINUS RHYTHM NONSPECIFIC INTRAVENTRICULAR CONDUCTION DELAY ST DEPRESSION, CONSIDER ISCHEMIA, ANT-LAT LDS NEED TO R/O L MAIN COR ARTERY STENOSIS. : Confirmed by: Shawn Rincon MD 11-Apr-2016 16:25:48
--- NOTE | 2016-04-11 16:58 | PDOC PROGRESS REPORT ---
Subjective Progress Note for:: 04/11/16 Subjective:: Patient seen and evaluated this afternoon. No issues overnight. Denies fever chills or sweats. States breathing has improved. Physical Exam Vital Signs: Temp Pulse Resp BP Pulse Ox 98.9 F 89 18 137/78 H 94 04/11/16 16:00 04/11/16 16:00 04/11/16 16:00 04/11/16 16:00 04/11/16 16:00 Intake & Output 04/10/16 04/11/16 04/12/16 06:59 06:59 06:59 Intake Total 3525 2478 Output Total 3655 850 Balance -130 1628 Weight 136.9 kg 136.9 kg Musculoskeletal exam: PRESENT: other - Left ankle: Tenderness palpation medial and lateral. Notable ankle effusion with lateral swelling relatively unchanged. There is increased erythema more proximally now 5 cm proximal to the ankle joint. No streaking erythema proximal to this. No calf tenderness. Results Laboratory Results: 04/11/16 05:16 04/11/16 12:10 04/11/16 04/11/16 04/11/16 05:16 05:16 12:10 WBC 16.8 H RBC 2.86 L Hgb 8.8 L Hct 27.6 L MCV 97 MCH 30.9 MCHC 32.0 RDW 13.3 Plt Count 548 H Seg Neutrophils % Not Reportable Lymphocytes % Not Reportable Monocytes % Not Reportable Eosinophils % Not Reportable Basophils % Not Reportable Absolute Neutrophils Not Reportable Absolute Lymphocytes Not Reportable Absolute Monocytes Not Reportable Absolute Eosinophils Not Reportable Absolute Basophils Not Reportable Sodium 137.7 140.8 Potassium 4.4 4.3 Chloride 98 98 Carbon Dioxide 31 H 32 H Anion Gap 9 11 BUN 15 14 Creatinine 0.81 0.80 Est GFR ( Amer) > 60 > 60 Est GFR (Non-Af Amer) > 60 > 60 Glucose 89 118 H Uric Acid Calcium 9.5 10.0 Magnesium 1.2 L* Total Bilirubin 0.6 AST 38 ALT 66 Alkaline Phosphatase 96 Total Protein 5.3 L Albumin 2.3 L 04/11/16 12:10 WBC RBC Hgb Hct MCV MCH MCHC RDW Plt Count Seg Neutrophils % Lymphocytes % Monocytes % Eosinophils % Basophils % Absolute Neutrophils Absolute Lymphocytes Absolute Monocytes Absolute Eosinophils Absolute Basophils Sodium Potassium Chloride Carbon Dioxide Anion Gap BUN Creatinine Est GFR ( Amer) Est GFR (Non-Af Amer) Glucose Uric Acid 4.7 Calcium Magnesium Total Bilirubin AST ALT Alkaline Phosphatase Total Protein Albumin 04/11/16 04/11/16 04/11/16 12:10 12:10 12:10 Creatine Kinase < 20 L Cancelled CK-MB (CK-2) 0.83 Troponin I 0.158 Impressions: Lower Extremity MRI 04/04/16 00:00 IMPRESSION: 1. Marked ankle deformity as described. 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 No evidence of overt osteomyelitis. Extensive tenosynovitis. Head CT 04/04/16 05:35 IMPRESSION: NORMAL BRAIN CT WITHOUT CONTRAST. Abdomen Ultrasound 04/05/16 00:00 IMPRESSION: Fatty liver. No gallstones. Ankle X-Ray 04/05/16 10:45 IMPRESSION: As above. Venous Doppler Study 04/09/16 00:00 IMPRESSION: NO EVIDENCE DVT OR SVT IN THE LEFT LEG. Chest X-Ray 04/11/16 11:16 IMPRESSION: Mild right basilar atelectasis. Assessment & Plan - Diagnosis (1) Septic arthritis of left ankle Qualifiers: Septic arthritis organism: streptococcal Qualified Code(s): M00.272 - Other streptococcal arthritis, left ankle and foot Is this a current diagnosis for this admission?: YesPlan: At this point patient's redness has increased clinically he has remained unchanged but his kidney function has improved along with his white count during his stay despite slightly increasing to 16 yesterday and today. Once again patient requires operative intervention for definitive treatment but given his history of hemophilia and has been deemed is not medically stable for operative intervention at our facility [facility]. I will continue to monitor him clinically to ensure emergent surgical intervention is not required.
--- NOTE | 2016-04-11 17:09 | PDOC TRANSFER SUMMARY ---
General Admission Date/PCP: 04/04/16 09:58 Admission Date: 04/04/16 Transfer Date: 04/08/16 - at bed availability Accepting Facility: [facility] Accepting Physician: Dr. Mcgowan/Dr. 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 Current Visit: Yes (3) Sepsis Current Visit: Yes (4) Septic arthritis of left ankle Current Visit: Yes (5) Acute hypoxemic respiratory failure Current Visit: Yes (6) Acute kidney injury Current Visit: Yes (7) Benign prostatic hyperplasia Current Visit: Yes (8) Chronic kidney disease, stage III (moderate) Current Visit: Yes (9) Chronic obstructive pulmonary disease Current Visit: Yes (10) Coronary artery disease Current Visit: Yes (11) Opiate dependence, continuous Current Visit: Yes (12) Peripheral vascular disease Current Visit: Yes (13) Right middle lobe pneumonia Current Visit: Yes (14) Staphylococcus aureus bacteremia Current Visit: Yes (15) DANGELO (obstructive sleep apnea) Current Visit: Yes (16) Obesity (BMI 30-39.9) Current Visit: Yes - Transfer Medications Home Medications: Albuterol Sulfate [Albuterol Sulfate 2.5mg/3 mL] 2.5 mg IH PRN PRN 04/04/16 Albuterol Sulfate [Proair Hfa Inhalation Aerosol 8.5 gm Mdi] 1 puff IH Q4HP PRN 04/04/16 Carvedilol [Coreg] 12.5 mg PO DAILY 04/04/16 Celecoxib [Celebrex 200 mg Capsule] 200 mg PO DAILY 04/04/16 Citalopram Hydrobromide [Celexa 40 mg Tablet] 40 mg PO DAILY 04/04/16 Esomeprazole Magnesium [Nexium] 40 mg PO DAILY 04/04/16 Furosemide [Lasix 40 mg Tablet] 40 mg PO Q2DAYS PRN 04/04/16 Gabapentin 600 mg PO BID 04/04/16 Hydromorphone HCl [Dilaudid] 4 mg PO Q4HP PRN 04/04/16 Losartan Potassium 100 mg PO DAILY 04/04/16 Nitroglycerin [Nitrostat 0.4 mg (1/150 Gr) Tabs 25/Bottle] 1 tab SL Q5MP PRN 01/09 Prednisone 10 mg PO DAILY 04/04/16 Tamsulosin HCl [Flomax 0.4 mg Cap.sr] 0.4 mg PO DAILY 04/04/16 Tiotropium Downs [Spiriva Handihaler 18 mcg/dose (30 Dose)] 1 cap IH DAILY 01/09 Ipratropium/Albuterol Sulfate [Duoneb 3 ml Ampul] 3 ml NEB QIDP PRN 04/08/16 Transfer Medications: Current Medications Acetaminophen (Tylenol 325 Mg Tablet) 650 mg PO Q8HP PRN Stop: 05/06/16 23:14 Last Admin: 04/11/16 04:07 Dose: 650 mg Al Hydrox/Mg Hydrox/Simethicone (Maalox Plus Susp 30 Udcup) 30 ml PO Q4HP PRN PRN Reason: HEARTBURN Stop: 05/05/16 18:21 Last Admin: 04/05/16 20:27 Dose: 30 ml Albuterol (Ventolin 0.083% Neb 2.5 Mg/3 Ml Ampul) 2.5 mg NEB RTQ6HP PRN PRN Reason: SHORTNESS OF BREATH Stop: 05/08/16 15:25 Albuterol/Ipratropium (Duoneb 3 Ml Ampul) 3 ml NEB [id number] ALBINO Stop: 05/08/16 19:59 Last Admin: 04/11/16 13:57 Dose: 3 ml Carvedilol (Coreg 3.125 Mg Tablet) 3.125 mg PO Q12 ALBINO Stop: 05/11/16 21:59 Celecoxib (Celebrex 200 Mg Capsule) 200 mg PO DAILY ALBINO Stop: 05/12/16 09:59 Citalopram Hydrobromide (Celexa 20 Mg Tablet) 40 mg PO DAILY ALBINO Stop: 05/05/16 09:59 Last Admin: 04/05/16 10:11 Dose: 40 mg Clindamycin HCl (Cleocin 150 Mg Capsule) 600 mg PO Q6 ALBINO Stop: 04/18/16 11:59 Last Admin: 04/11/16 15:00 Dose: 600 mg Fentanyl (Duragesic 25 Mcg/Hr Transdermal Patch) 1 each TD Q3DAYS ALBINO Stop: 04/21/16 09:59 Gabapentin (Neurontin 300 Mg Capsule) 600 mg PO Q8 ALBINO Stop: 05/11/16 13:59 Last Admin: 04/11/16 14:55 Dose: 600 mg Hydromorphone HCl (Dilaudid 2 Mg Tablet) 2 mg PO Q3HP PRN PRN Reason: PAIN Stop: 04/17/16 09:38 Last Admin: 04/11/16 10:45 Dose: 2 mg Cefazolin Sodium/Dextrose (Ancef Rtu 2 Gm/D5w 50 Ml Premix Bag) 2 gm in 50 mls @ 100 mls/hr IV Q6 ALBINO Stop: 04/18/16 11:59 Last Admin: 04/11/16 14:10 Dose: Not Given Lactobacillus Acidophilus (Bacid 250 Mg Tablet) 500 mg PO BID ALBINO Stop: 05/11/16 17:59 Lansoprazole (Prevacid 30 Mg Odt Tablet) 30 mg PO DAILY ALBINO Stop: 05/05/16 09:59 Last Admin: 04/11/16 09:59 Dose: 30 mg Lorazepam (Ativan 0.5 Mg Tablet) 0.5 mg PO TIDP PRN Stop: 04/15/16 12:59 Last Admin: 04/10/16 09:50 Dose: 0.5 mg Magnesium Oxide (Mag-Ox 400 Mg Tablet) 800 mg PO TID ALBINO Stop: 05/11/16 13:59 Last Admin: 04/11/16 14:55 Dose: 800 mg Nitroglycerin (Nitrostat 0.4 Mg (1/150 Gr) Tabs 25/Bottle) 1 tab SL Q5MP PRN Stop: 05/04/16 15:26 Last Admin: 04/11/16 10:45 Dose: 1 tab Prednisone (Deltasone 10 Mg Tablet) 10 mg PO DAILY ALBINO Stop: 05/05/16 09:59 Last Admin: 04/11/16 09:59 Dose: 10 mg Sodium Chloride (Saline Flush 2.5 Ml Monoject Prefil Syrin) 2.5 ml IV Q8 ALBINO Stop: 05/04/16 13:59 Last Admin: 04/11/16 14:56 Dose: 2.5 ml Tamsulosin HCl (Flomax 0.4 Mg Cap.Sr) 0.4 mg PO QPM ALBINO Stop: 05/04/16 17:59 Last Admin: 04/10/16 18:31 Dose: 0.4 mg - Allergies Allergies/Adverse Reactions: Penicillins Allergy (Severe, Verified 04/04/16 04:47) Anaphylaxis - Diet/Activity Discharge Diet: Cardiac Discharge Activity: Activity As Tolerated Hospital Course Hospital Course: Patient was initially admitted with acute kidney injury, pneumonia, sepsis, left septic ankle arthritis. Patient was initially started on broad-spectrum antibiotics and rehydrated with resolution of his acute kidney injury and isolation of Staphylococcus aureus in his blood as well as from his left ankle. Patient's antibiotics continue to be taper. Today he had precordial chest pressure without radiation while at rest associated with some shortness of breath, no diaphoresis, no nausea, no vomiting. Transiently, patient had ST segment depressions in V3,4 and 5. Patient also had an elevation of his troponin to 0.158. Given patient's hemophilia status, patient was not given aspirin nor heparin. Patient is already on Coreg and TALI/ARB had been held secondary to his underlying acute kidney injury. Patient's pain was relieved with nitroglycerin and currently is chest pain-free with nitroglycerin patch in place. Patient is currently suffering from what he says is indigestion. Currently on oxygen. Patient has been accepted by Dr. Mcgowan/Dr. Holm at [facility] and we are grateful for their increased level of care. Physical Exam Vital Signs: Temp Pulse Resp BP Pulse Ox 98.9 F 89 18 137/78 H 94 04/11/16 16:00 04/11/16 16:00 04/11/16 16:00 04/11/16 16:00 04/11/16 16:00 Intake & Output 04/10/16 04/11/16 04/12/16 06:59 06:59 06:59 Intake Total 3525 5288 Output Total 3655 850 Balance -130 1628 Weight 136.9 kg 136.9 kg Exam: GENERAL: Mild pain, awake, alert, oriented 3 HEENT: ATC/NC, Conjunctiva clear, nonicteric, moist mucous membranes, no JVD, midline trachea RESPIRATORY: Crackles right lower lung CARDIAC: Normal S1 and S2 Regular rate and rhythm, no appreciable murmurs/ gallops/rubs ABDOMEN: Soft, nondistended, nontender, hypoactive, bowel sounds, no rebound, no guarding EXTREMETIES: Significant swelling involving left ankle, erythema, +1 bilateral lower extremity edema, no cyanosis, no clubbing NEUROLOGIC: Alert, oriented to person/place/time, CN's grossly intact, no focal deficits SKIN: No rash, wounds PSYCH: Normal mood, normal affect Results Laboratory Results: 04/11/16 05:16 04/11/16 12:10 04/11/16 04/11/16 04/11/16 05:16 05:16 12:10 WBC 16.8 H RBC 2.86 L Hgb 8.8 L Hct 27.6 L MCV 97 MCH 30.9 MCHC 32.0 RDW 13.3 Plt Count 548 H Seg Neutrophils % Not Reportable Lymphocytes % Not Reportable Monocytes % Not Reportable Eosinophils % Not Reportable Basophils % Not Reportable Absolute Neutrophils Not Reportable Absolute Lymphocytes Not Reportable Absolute Monocytes Not Reportable Absolute Eosinophils Not Reportable Absolute Basophils Not Reportable Sodium 137.7 140.8 Potassium 4.4 4.3 Chloride 98 98 Carbon Dioxide 31 H 32 H Anion Gap 9 11 BUN 15 14 Creatinine 0.81 0.80 Est GFR ( Amer) > 60 > 60 Est GFR (Non-Af Amer) > 60 > 60 Glucose 89 118 H Uric Acid Calcium 9.5 10.0 Magnesium 1.2 L* Total Bilirubin 0.6 AST 38 ALT 66 Alkaline Phosphatase 96 Total Protein 5.3 L Albumin 2.3 L 04/11/16 12:10 WBC RBC Hgb Hct MCV MCH MCHC RDW Plt Count Seg Neutrophils % Lymphocytes % Monocytes % Eosinophils % Basophils % Absolute Neutrophils Absolute Lymphocytes Absolute Monocytes Absolute Eosinophils Absolute Basophils Sodium Potassium Chloride Carbon Dioxide Anion Gap BUN Creatinine Est GFR ( Amer) Est GFR (Non-Af Amer) Glucose Uric Acid 4.7 Calcium Magnesium Total Bilirubin AST ALT Alkaline Phosphatase Total Protein Albumin 04/11/16 04/11/16 04/11/16 12:10 12:10 12:10 Creatine Kinase < 20 L Cancelled CK-MB (CK-2) 0.83 Troponin I 0.158 Impressions: Lower Extremity MRI 04/04/16 00:00 IMPRESSION: 1. Marked ankle deformity as described. 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 No evidence of overt osteomyelitis. Extensive tenosynovitis. Head CT 04/04/16 05:35 IMPRESSION: NORMAL BRAIN CT WITHOUT CONTRAST. Abdomen Ultrasound 04/05/16 00:00 IMPRESSION: Fatty liver. No gallstones. Ankle X-Ray 04/05/16 10:45 IMPRESSION: As above. Venous Doppler Study 04/09/16 00:00 IMPRESSION: NO EVIDENCE DVT OR SVT IN THE LEFT LEG. Chest X-Ray 04/11/16 11:16 IMPRESSION: Mild right basilar atelectasis. Plan Time Spent: Greater than 30 Minutes
[2016-04-11] MEDS: TAMSULOSIN HCL 0.4 MG CAP.SR.24H PO SCH (17:27)
[2016-04-11] MEDS: MAG HYDROX/AL HYDROX/SIMETH SUSP 30 ML UDCUP PO PRN (17:27)
[2016-04-11] MEDS ORDERED: LACTOBACILLUS ACIDOPHILUS 250 MG TAB PO SCH (18:00)
[2016-04-11 19:08] LABS: CREATINE KINASE MB 0.5 ng/mL (<4.55)
[2016-04-11 19:18] LABS: TROPONIN I 0.194 ng/mL
[2016-04-11] MEDS ORDERED: CARVEDILOL 3.125 MG TABLET PO SCH (22:00)
[2016-04-12] MEDS ORDERED: CELECOXIB 200 MG CAPSULE PO SCH (10:00)
[2016-04-14] MEDS ORDERED: FENTANYL 25 MCG/HR PATCH.TD72 TD SCH (10:00)
== END 2016-04-11 19:25 | disposition short-term general hospital (02) | DRG 871 ==
LOC: ER 03:45 → EH 09:28 → UNDOADMOB 09:58 → EH 09:58 → OBSVTOIN 09:58 → INTOOBSV 09:58 → 4S 11:14
PROC: 0S9G3ZX Drainage of Left Ankle Joint, Percutaneous Approach, Diagnostic (ICD-10-PCS; principal; 2016-04-08)
PROC: 5A09457 Assistance with Respiratory Ventilation, 24-96 Consecutive Hours, Continuous Positive Airway Pressure (ICD-10-PCS; 2016-04-08)
DX: A41.02 Sepsis due to Methicillin resistant Staphylococcus aureus (principal); D67 Hereditary factor IX deficiency; J96.01 Acute respiratory failure with hypoxia; J15.6 Pneumonia due to other Gram-negative bacteria; R65.21 Severe sepsis with septic shock; I21.3 ST elevation (STEMI) myocardial infarction of unspecified site; M00.072 Staphylococcal arthritis, left ankle and foot; N17.9 Acute kidney failure, unspecified; J44.9 Chronic obstructive pulmonary disease, unspecified; I25.2 Old myocardial infarction; I25.10 Atherosclerotic heart disease of native coronary artery without angina pectoris; E66.9 Obesity, unspecified; Z79.51 Long term (current) use of inhaled steroids; N18.3 Chronic kidney disease, stage 3 (moderate); Z79.891 Long term (current) use of opiate analgesic; N40.0 Benign prostatic hyperplasia without lower urinary tract symptoms; I73.9 Peripheral vascular disease, unspecified; I12.9 Hypertensive chronic kidney disease with stage 1 through stage 4 chronic kidney disease, or unspecified chronic kidney disease; B95.61 Methicillin susceptible Staphylococcus aureus infection as the cause of diseases classified elsewhere; R65.20 Severe sepsis without septic shock; K76.0 Fatty (change of) liver, not elsewhere classified; G47.33 Obstructive sleep apnea (adult) (pediatric); Z88.0 Allergy status to penicillin; Z79.899 Other long term (current) drug therapy; Z68.37 Body mass index [BMI] 37.0-37.9, adult; Z75.1 Person awaiting admission to adequate facility elsewhere; Z82.49 Family history of ischemic heart disease and other diseases of the circulatory system; Z82.3 Family history of stroke; Z80.9 Family history of malignant neoplasm, unspecified; Z79.52 Long term (current) use of systemic steroids
CPT/HCPCS: 36415; 36600; 70450; 71010; 71020; 76700; 80048; 80053; 80076; 80307; 81001; 82533; 82550; 82553; 82803; 83036; 83605; 83735; 84484; 84550; 85025; 85027; 85610; 85652; 85730; 86140; 87040; 87070; 87075; 87077; 87086; 87186; 87205; 93005; 93010; 93306; 93971; 94660; 94799; 96361; 96365; 96375; 99285; J0690; J0696; J1170; J1720; J1940; J2020; J2310; J3475; J3490; J7030; J7512; J7620